=== PATIENT | male | born 1955 | race Caucasian/White ===

== ENCOUNTER 2019-09-06 10:00 | Outpatient (RCR) | payer OTHER, MEDICARE, SELFPAY ==
--- NOTE | 2019-06-19 11:32 | PCCPR ---
H/O gout and a flair up just prior to bypass surgery. To start a maintain dose of allopurinol
[2019-06-19 11:55] VITALS: BP 130/78; PULSE 66; RESP 12; O2SAT 100
[2019-06-19 12:18] VITALS: PULSE 66
== END 2019-09-11 15:55 | disposition home or self-care (01) ==
LOC: ANHCPREHAB 10:00
PROVIDERS: PCP Family Medicine
DX: Z95.1 Presence of aortocoronary bypass graft (principal)
CPT/HCPCS: 93798

== ENCOUNTER 2021-01-16 10:55 | Observation (INO) | payer OTHER, MEDICARE, SELFPAY ==
--- NOTE | ~2021-01-16 | CT_ITS ---
EXAMINATION: CT brain wo con DATE: 01/16/2021 13:39 INDICATION: Nausea and dizziness. TECHNIQUE: Computed tomography (CT) of the head was performed without intravenous contrast. Sagittal and coronal reconstructions were performed. Automated exposure control and iterative reconstruction t echnique were employed. The dose-length product was 605.33 mGy-cm. COMPARISON: None FINDINGS: No acute intracranial hemorrhage, acute infarction or abnormal extra axial fluid collection. There is mild scattered white matter hypoattenuation consistent with chronic small vessel ischemic disease. S ymmetric prominence of the sulci and ventricles consistent with mild age-appropriate diffuse cerebral volume loss. Ventricles are normal and symmetric. No mass/mass effect. Mild mucosal thickening in th e right maxillary and bilateral ethmoid sinuses. The orbits and mastoid air cells are normal. Intracr anial calcified cerebral atherosclerosis is noted. IMPRESSION: 1. No acute intracranial process. 2. Age-related changes including mild diffuse volume loss and mild scattered white matter hypoattenua tion consistent with chronic small vessel ischemic disease. Reviewed, dictated and finalized at location A. IMPRESSION: 1. No acute intracranial process. 2. Age-related changes including mild diffuse volume loss and mild scattered wh ite matter hypoattenuation consistent with chronic small vessel ischemic diseas e.
[2021-01-16 10:54] VITALS: BP 168/83; PULSE 58; RESP 18; TEMP 36.8; O2SAT 100
--- NOTE | 2021-01-16 11:03 | ECG_ITS ---
Measurements Intervals [place] Rate: 51 P: 2 MT: 131 QRS: 60 QRSD: 101 T: -70 QT: 455 QTc: 422 Interpretive Statements SINUS BRADYCARDIA MINIMAL Q WAVES- INFERIOR LEADS T WAVE ABNORMALITY IN LATERAL LEADS- CONSIDER ISCHEMIA ABNORMAL ECG Electronically Signed On 01-16-2021 11:35:10 CDT by Bart Dupont D.O.
[2021-01-16 11:36] LABS: Basophils Percent Auto 0.5 % (0.2-1.2); Eosinophils Percent Auto 0.6 % (0-4.4); Hematocrit 35.5 % (42.0-52.0); Hemoglobin 11.7 g/dL (14.0-18.0); Immature Granulocyte Absolute 0.03 K/mm3 (0.00-0.031); Immature Granulocyte Percent A 0.5 % (0-0.5); Lymphocytes Absolute Auto 0.67 K/mm3 (0.9-3.2); Lymphocytes Percent Auto 10.7 % (18.3-44.2); Mean Platelet Volume 10.7 fl (7.4-10.4); Monocytes Absolute Auto 0.4 K/mm3 (0.1-0.6); Monocytes Percent Auto 5.6 % (2.6-8.5); Neutrophils Absolute Auto 5.2 K/mm3 (1.3-6.7); Neutrophils Percent Auto 82.1 % (45.5-73.1); Platelet Count Result 134 k/mm3 (150-375); Red Cell Distribution Width 13.5 % (11.5-14.5); White Blood Count 6.3 K/mm3 (4.5-10.0)
[2021-01-16] MEDS: MECLIZINE HCL 25 MG TABLET PO ×2 (11:43→17:40)
[2021-01-16 11:45] LABS: Anion Gap 14 mmol/L (8-16); Blood Urea Nitrogen 5 mg/dL (9-20); Carbon Dioxide 26 mmol/L (22-30); Chloride 98 mmol/L (98-107); Estimated CRCL calculation 102 ml/min; Estimated Glomerular Filt Rate > 60; Glucose 125 mg/dL (65-110); Potassium 3.3 mmol/L (3.4-5.0); Sodium 138 mmol/L (137-145)
[2021-01-16] MEDS: POTASSIUM CHLORIDE 20 MEQ TABLET 40 MEQ PO (12:00)
[2021-01-16 12:01] LABS: Alanine Aminotransferase 36 U/L (4-50); Albumin Level 4.2 g/dL (3.5-5.1); Alkaline Phosphatase 100 U/L (38-126); Aspartate Amino Transferase 90 U/L (17-59); Bilirubin,Total 0.9 mg/dL (0.2-1.3)
--- NOTE | 2021-01-16 12:01 | ED.DIZZY ---
HPI - Dizziness General Chief Complaint: Dizziness Stated Complaint: dizziness Time Seen by Provider: 01/16/21 11:06 Source: patient Mode of arrival: ambulatory Limitations: no limitations History of Present Illness HPI Narrative: This is a 65 year old male with history of CAD s/p CABG, torsades who presents for evaluation of vertigo. He woke up yesterday morning with room spinning yesterday . He state he has has spinning with standing or walking. This episode lasted 15 minutes before it resolved. These symptoms were intermittent with standing and today he is having more frequent episodes. He has nausea and vomiting with his vertigo. He denies chest pain, sob, ear ache or tinnitis. He also denies focal weakness, numbness or tingling. He does admit to drinking beer daily. He is unsure of withdrawal symptoms. Related Data Home Medications Medication Instructions Recorded Confirmed atorvastatin 80 mg PO HS 06/19/19 01/16/21 folic acid 1 mg PO DAILY 06/19/19 01/16/21 lisinopril 20 mg PO DAILY 06/19/19 01/16/21 metoprolol succinate 50 mg PO DAILY 06/19/19 01/16/21 [id number] 1 tablet PO DAILY 06/19/19 01/16/21 [Theragran-M Premier 50 Plus] thiamine HCl (vitamin B1) 100 mg PO DAILY 06/19/19 01/16/21 omeprazole magnesium [Prilosec OTC] 20 mg PO DAILY 01/16/21 01/16/21 Allergies Allergy/AdvReac Type Severity Reaction Status Date / Time ampicillin Allergy Unknown Verified 01/16/21 16:19 Penicillins Allergy Unknown Verified 01/16/21 16:19 AMOXICILLIN TRIHYDRATE Allergy Unknown Uncoded 01/16/21 16:19 Review of Systems Review of Systems: All systems reviewed & are unremarkable except as noted in HPI and below Constitutional: Constitutional: Denies chills and Denies fever(s) Eyes: Eyes: Denies change in vision ENT: Denies dysphagia, Reports vertigo and Denies sore throat Cardiovascular: Cardiovascular: Denies chest pain Respiratory: Respiratory: Denies cough and Denies dyspnea Gastrointestinal: Gastrointestinal: Denies abdominal pain, Reports nausea and Denies vomiting Neurologic: Reports vertigo, Reports dizziness, Denies headache(s), Denies focal weakness and Denies numbness PMFSH Past Medical History Medical History (Updated 01/16/21 @ 19:12 by Randee Bazan MD) Alcohol abuse CAD (coronary artery disease) Torsades de pointes Surgical History Surgical History (Updated 01/16/21 @ 19:09 by Randee Bazan MD) Hx of CABG Family History Family History Other Depression Social History Social History (System 01/16/21 @ 16:19 by Guillermo Mercedes) Smoking status: Never smoker Alcohol intake: current Drinks per week: 14 Substance use: never Spiritual care concerns: No Exam Const: General: no acute distress, alert and ill appearing Orientation/consciousness: patient oriented x3 HENMT: Head: normocephalic and atraumatic Face and sinus: face symmetric Mouth: Yes Normal oral and palatal mucosa present, Yes lip normal, Yes oropharynx normal and Yes moist mucous membranes Eyes: Pupils: Equal, round and reactive pupils present EOM: EOMs intact bilaterally Resp: Effort & Inspection: normal respiratory effort and no retractions Auscultation: clear to auscultation bilaterally Cardio: Rate: bradycardic Rhythm: regular rhythm Heart sounds: Murmur heart sound present GI: GI Palp: Yes Soft to palpation, No Tenderness to palpation present (GI) and No Guarding due to palpation present (GI) Auscultation: normal bowel sounds Neuro: General: patient oriented x3, moves all extremities, no focal motor deficits and CN's II-XI intact bilaterally Cranial nerves: Yes facial symmetry and Yes Nystagmus present rotary Speech: normal speech Motor exam (neuro): 5/5 motor strength present throughout Sensory Exam: normal sensation Coordination: [id number]-[id number] test normal and [id number]-ul-[id number] test normal Course Ree
[2021-01-16] MEDS: CALCIUM GLUCONATE 1,000 MG/10 ML VIAL 1000 MG IV PUSH (12:52)
[2021-01-16] MEDS: SODIUM CHLORIDE 0.9% IV 500 ML 999 ML IV CONT (13:06)
[2021-01-16] MEDS: PROCHLORPERAZINE EDISYLATE 10 MG/2 ML VIAL IV PUSH (13:07)
[2021-01-16 13:09] LABS: Magnesium < 0.2 mg/dL (1.6-2.3)
[2021-01-16] MEDS: MAGNESIUM SULF 4 GM/WATER100ML 4 GM/100 ML BAG IVPB (13:42)
[2021-01-16] MEDS: THIAMINE HCL INJ 100 MG, FOLIC ACID INJ 1 MG, MULTIVITAMINS-12 INJ VIAL 1 5 ML, MULTIVI... IV CONT (15:21)
[2021-01-16 16:10] VITALS: BP 158/70; PULSE 74; RESP 18; TEMP 36.1; O2SAT 100; BMI 22.6
--- NOTE | 2021-01-16 16:18 | ADMGEN ---
This patient, Yeyo Vieira, was admitted to 2 Medical Room 242-. Patient/family oriented to hospital policies and general routines including ID bracelet, bed and alarms, visiting hours, pain management, procedures, bathroom and other care routines, personal items, smoking policy, room service/diet, and visiting hours. Information on how to activate the Rapid Response Team has been discussed. Patient/Family are encouraged to report perceived risks to care and to ask questions if they do not understand what they are told or what they should do.
[2021-01-16 19:19] LABS: Anion Gap 9 mmol/L (8-16); Blood Urea Nitrogen 4 mg/dL (9-20); Calcium 6.7 mg/dL (8.4-10.2); Carbon Dioxide 29 mmol/L (22-30); Chloride 97 mmol/L (98-107); Estimated CRCL calculation 101 ml/min; Estimated Glomerular Filt Rate > 60; Glucose 146 mg/dL (65-110); Magnesium 1.3 mg/dL (1.6-2.3); Sodium 135 mmol/L (137-145)
[2021-01-16 20:00] VITALS: PULSE 72
--- NOTE | 2021-01-16 20:36 | PM.IMHP ---
H&P: HPI History of Present Illness Date/Time: 01/16/21 20:36 Chief Complaint: VERTIGO Narrative: THIS IS A 65-YEAR-OLD MALE WITH PAST MEDICAL HISTORY SIGNIFICANT FOR CORONARY ARTERY DISEASE, CORONARY ARTERY BYPASS GRAFT X 5 VESSEL DISEASE, TORSADE THE POINTE, HYPO MAGNESEMIA. PATIENT PRESENTED TODAY AFTER HE WAS BROUGHT IN [facility] AFTER HE FELT VERY DIZZY HE STATES THAT HE HAS BEEN FEELING DIZZY FOR SEVERAL DAYS NOW MAINLY VERTIGO WITH ROOM SPINNING AROUND SENSATION THIS IS TRIGGERED BY SUDDEN CHANGE IN POSITION OF HIS HEAD. IN THE EMERGENCY ROOM PATIENT WAS FOUND TO HAVE A MAGNESIUM OF 0.2 WHICH HAS BEEN REPLACED WITH 4 G OF MAGNESIUM SULFATE. PATIENT DENIES ANY FEVERS RIGORS CHILLS COUGH SPUTUM PRODUCTION NAUSEA VOMITING DIARRHEA ABDOMINAL PAIN CHEST PAIN SHORTNESS OF BREATH CLAUDICATION SYNCOPE PND OR ORTHOPNEA. Review of Systems Review of Systems: VERTIGO Constitutional: Constitutional: Denies chills, Denies fatigue, Denies fever(s), Denies lethargy and Denies weakness Eyes: Eyes: Denies change in vision ENT: Reports system reviewed and no additional complaints, except as documented, Denies dysphagia, Denies nasal obstruction, Denies odynophagia and Denies disequilibrium Cardiovascular: Cardiovascular: Denies irregular heart rhythm, Denies lightheadedness, Denies radiating jaw, neck or arm pain, Denies palpitations, Denies dyspnea, Denies dyspnea on exertion and Denies orthopnea Respiratory: Respiratory: Denies cough Gastrointestinal: Gastrointestinal: Denies abdominal pain, Denies nausea and Denies vomiting Genitourinary: Genitourinary: Reports no additional male genitourinary complaints Musculoskeletal: Musculoskeletal: Reports no additional musculoskeletal complaints Integumentary/Breasts: Skin/Breast: Reports system reviewed and no additional complaints, except as docu Neurologic: Reports system reviewed and no additional complaints, except as documented, Reports vertigo, Denies focal weakness and Denies Sensory deficit (Neuro) Psychiatric: Psychiatric: Reports no additional psychiatric complaints Endocrine: Endocrine: Reports no additional endocrine complaints Hematologic/Lymphatic: Hematologic/Lymphatic: Reports no additional hematologic/lymphatic complaints Allergic/Immunologic: Allergic/Immunologic: Reports no additional allergic/immunologic complaints [facility] Past Medical History Medical History (Updated 01/16/21 @ 22:00 by Ronald Gabriel MD) Alcohol abuse CAD (coronary artery disease) Torsades de pointes Surgical History Surgical History (Updated 01/16/21 @ 19:09 by Randee Bazan MD) Hx of CABG Family History Family History Other Depression Social History Social History (System 01/16/21 @ 16:19 by Guillermo Mercedes) Smoking status: Never smoker Alcohol intake: current Drinks per week: 14 Substance use: never Spiritual care concerns: No Meds Home Medications and Allergies Home Medications Medication Instructions Recorded Confirmed Type atorvastatin 80 mg PO HS 06/19/19 01/16/21 History folic acid 1 mg PO DAILY 06/19/19 01/16/21 History lisinopril 20 mg PO DAILY 06/19/19 01/16/21 History metoprolol succinate 50 mg PO DAILY 06/19/19 01/16/21 History [id number] 1 tablet PO DAILY 06/19/19 01/16/21 History [Theragran-M Premier 50 Plus] thiamine HCl (vitamin B1) 100 mg PO DAILY 06/19/19 01/16/21 History omeprazole magnesium [Prilosec OTC] 20 mg PO DAILY 01/16/21 01/16/21 History Allergies Allergy/AdvReac Type Severity Reaction Status Date / Time ampicillin Allergy Unknown Verified 01/16/21 16:19 Penicillins Allergy Unknown Verified 01/16/21 16:19 AMOXICILLIN TRIHYDRATE Allergy Unknown Uncoded 01/16/21 16:19 Vital Signs Vital Signs - 24 hr 01/16/21 10:54 01/16/21 16:10 01/16/21 20:00 Temperature 98.2 F 97.0 F L Pulse Rate 58 L 74 72 Respiratory Rate 18 18 Blood Press
[2021-01-16 21:35] LABS: Glucose Point of Care 130 mg/dl (65-105)
[2021-01-16 21:38] VITALS: BP 138/62; PULSE 68; RESP 16; TEMP 36.2; O2SAT 99
[2021-01-16] MEDS: MAGNESIUM SULF 2 GM/WATER 50ML 2 GM/50 ML BAG IVPB (23:18)
[2021-01-16] MEDS: ATORVASTATIN 40 MG TABLET 80 MG PO (23:19)
[2021-01-17] VITALS (10 sets, daily range): BP systolic 136–143; BP diastolic 72–80; PULSE 67–102; RESP 16–18; TEMP 36.3–36.6; O2SAT 98–99
--- NOTE | 2021-01-17 08:58 | PM.IMPN ---
Progress Note: A&P Assessment and Plan (1) Vertigo: Code(s): R42 - Dizziness and giddiness Status: Acute Assessment and Plan: Suspect 2/2 positional vertigo Supportive care (2) Hypomagnesemia: Code(s): E83.42 - Hypomagnesemia Status: Acute Assessment and Plan: Will recheck Replace prn Daily supplement at d/c (3) CAD (coronary artery disease): Code(s): I25.10 - Atherosclerotic heart disease of [place] coronary artery without angina pectoris Status: Inactive Assessment and Plan: Stable Continue with home meds (4) Hypokalemia: Code(s): E87.6 - Hypokalemia Status: Acute Assessment and Plan: K+ 3.0 Will give 40 meq KCL Monitor (5) Alcohol abuse: Code(s): F10.10 - Alcohol abuse, uncomplicated Status: Inactive Assessment and Plan: Pt reported drinking 1-3 beers Daily Monitor CIWA if necessary (6) Torsades de pointes: Code(s): I47.2 - Ventricular tachycardia Status: Inactive Assessment and Plan: *Hx of hypomagnesemia and torsades WILL NEED MAGNESIUM SUPPLEMENT GOING HOME Subjective Date/time seen: 01/17/21 08:58 Review of Systems Review of Systems: All systems reviewed & are unremarkable except as noted in HPI and below Exam Const: General: no acute distress, alert and awake Orientation/consciousness: patient oriented x3 HENMT: Head: normocephalic and atraumatic Ears: hearing grossly normal bilaterally and external ears normal Face and sinus: face symmetric Mouth: Yes Normal oral and palatal mucosa present Eyes: Pupils: Equal, round and reactive pupils present EOM: EOMs intact bilaterally Neck: Neck: full ROM, trachea midline and no JVD Thyroid: thyroid normal Chest: Chest palpation & inspection: normal inspection of the chest Resp: Effort & Inspection: normal respiratory effort Auscultation: clear to auscultation bilaterally Cardio: Jugular venous distension: no JVD Rate: regular rate Rhythm: regular rhythm Heart sounds: S1 normal heart sound present and S2 normal heart sound present GI: Inspection: normal to inspection GI Palp: Yes Soft to palpation Percussion: Yes normal to percussion Auscultation: normal bowel sounds : General: Yes no CVA tenderness Back/Spine/Pelvis: Back: no CVA tenderness Skin: General skin exam: normal color Rashes: no rashes Neuro: General: patient oriented x3 and CN's II-XI intact bilaterally Cranial nerves: Yes Equal, round and reactive pupils present Speech: normal speech Psych: Appearance: grossly normal Affect: normal affect Judgement: Good judgement present (Psych) Objective Data Vital Signs Vital Signs: Vital Signs - 24 hr 01/16/21 10:54 01/16/21 16:10 01/16/21 20:00 Temperature 36.8 C 36.1 C L Pulse Rate 58 L 74 72 Respiratory Rate 18 18 Blood Pressure 168/83 H 158/70 H Pulse Oximetry 100 100 01/16/21 21:38 01/17/21 00:00 01/17/21 04:00 Temperature 36.2 C L Pulse Rate 68 68 77 Respiratory Rate 16 Blood Pressure 138/62 Pulse Oximetry 99 01/17/21 05:41 Temperature 36.3 C L Pulse Rate 67 Respiratory Rate 16 Blood Pressure 136/78 Pulse Oximetry 99 Intake/Output Intake/Output: Intake & Output 01/14/21 01/15/21 01/16/21 01/17/21 23:59 23:59 23:59 23:59 Intake Total 1130 1363.2 Balance 1130 1363.2 Meds/Results Medications: Active Medications Generic Name Dose Route Start Last Admin Trade Name Rachell PRN Reason Stop Dose Admin Atorvastatin Calcium 80 mg 01/17/21 09:00 Atorvastatin 40 Mg Tablet PO DAILY PETR Folic Acid 1 mg 01/17/21 09:00 Folic Acid 1 Mg Tablet PO DAILY PETR Acetaminophen 1,000 mg in 100 mls @ 400 mls/hr 01/16/21 14:50 Ofirmev 1,000 Mg Ivpb IVPB 01/17/21 14:51 Q6H PRN Mild Pain (1-3) or Fever Lisinopril 20 mg 01/17/21 09:00 Lisinopril 20 Mg Tablet PO DAILY PETR Magnesium Oxide 400 mg 01/17/21 09:00 Mag
[2021-01-17] MEDS: FOLIC ACID 1 MG TABLET PO (09:24)
[2021-01-17] MEDS: POTASSIUM CHLORIDE 20 MEQ TABLET.ER PO (09:24)
[2021-01-17] MEDS: lisinopriL 20 MG TABLET PO (09:24)
[2021-01-17] MEDS: POTASSIUM CHLORIDE 20 MEQ TABLET 40 MEQ PO (09:24)
[2021-01-17] MEDS: MAGNESIUM OXIDE 400 MG TABLET PO (09:24)
[2021-01-17] MEDS: MECLIZINE HCL 25 MG TABLET PO ×2 (09:25→16:33)
[2021-01-17] MEDS: METOPROLOL SUCCINATE EXT REL 50 MG TABCR PO (09:25)
[2021-01-17] MEDS: PANTOPRAZOLE 40 MG TABLET PO (09:26)
[2021-01-17] MEDS: THIAMINE HCL 100 MG TABLET PO (09:26)
[2021-01-17] MEDS: THERAPEUTIC MULTIVITAMINS/MINERALS TAB (*BKC) 1 TABLET PO (09:26)
[2021-01-17 09:36] LABS: Magnesium 1.7 mg/dL (1.6-2.3)
--- NOTE | 2021-01-17 10:31 | PC.NURSE ---
nurse called pharmacy for 0900 Atorvastatin 80 mg PO at 0830.
[2021-01-17] MEDS: ATORVASTATIN 40 MG TABLET 80 MG PO (11:13)
[2021-01-18] VITALS: PULSE 72
[2021-01-18 04:00] VITALS: PULSE 71
[2021-01-18 05:41] LABS: Anion Gap 4 mmol/L (8-16); Blood Urea Nitrogen 7 mg/dL (9-20); Calcium 7.1 mg/dL (8.4-10.2); Carbon Dioxide 30 mmol/L (22-30); Chloride 103 mmol/L (98-107); Estimated CRCL calculation 101 ml/min; Estimated Glomerular Filt Rate > 60; Glucose 94 mg/dL (65-110); Potassium 3.9 mmol/L (3.4-5.0); Sodium 137 mmol/L (137-145)
[2021-01-18 06:00] VITALS: BP 149/75; PULSE 76; RESP 18; TEMP 36.4; O2SAT 100
[2021-01-18 08:00] VITALS: PULSE 89
[2021-01-18] MEDS: CALCIUM CARBONATE (TUMS) 500 MG (200 MG ELEMENTAL) PO (08:37)
[2021-01-18 08:41] VITALS: PULSE 96
[2021-01-18] MEDS: ATORVASTATIN 40 MG TABLET 80 MG PO (08:41)
[2021-01-18] MEDS: POTASSIUM CHLORIDE 20 MEQ TABLET.ER PO (08:41)
[2021-01-18] MEDS: FOLIC ACID 1 MG TABLET PO (08:41)
[2021-01-18] MEDS: METOPROLOL SUCCINATE EXT REL 50 MG TABCR PO (08:41)
[2021-01-18] MEDS: MECLIZINE HCL 25 MG TABLET PO (08:41)
[2021-01-18] MEDS: lisinopriL 20 MG TABLET PO (08:41)
[2021-01-18] MEDS: PANTOPRAZOLE 40 MG TABLET PO (08:42)
[2021-01-18] MEDS: THIAMINE HCL 100 MG TABLET PO (08:42)
[2021-01-18] MEDS: THERAPEUTIC MULTIVITAMINS/MINERALS TAB (*BKC) 1 TABLET PO (08:42)
[2021-01-18] MEDS: MAGNESIUM OXIDE 400 MG TABLET PO (09:31)
--- NOTE | 2021-01-18 12:11 | PM.DS ---
DS: Admitting Diagnosis Admitting Diagnosis Vertigo DS: Discharge Diagnosis Discharge Diagnosis (1) Vertigo: Code(s): R42 - Dizziness and giddiness Status: Acute Assessment and Plan: Suspect 2/2 positional vertigo Supportive care (2) Hypomagnesemia: Code(s): E83.42 - Hypomagnesemia Status: Acute Assessment and Plan: Daily supplement at d/c (3) CAD (coronary artery disease): Code(s): I25.10 - Atherosclerotic heart disease of [place] coronary artery without angina pectoris Status: Inactive Assessment and Plan: Stable Continue with home meds (4) Hypokalemia: Code(s): E87.6 - Hypokalemia Status: Acute Assessment and Plan: Resolved K+ 3.0-->3.9 today S/p 40 meq KCL 01/17 D/c with supplement (5) Alcohol abuse: Code(s): F10.10 - Alcohol abuse, uncomplicated Status: Inactive Assessment and Plan: Pt reported drinking 1-3 beers daily (6) Torsades de pointes: Code(s): I47.2 - Ventricular tachycardia Status: Inactive Assessment and Plan: *Hx of hypomagnesemia and torsades WILL NEED MAGNESIUM SUPPLEMENT GOING HOME DS: Summary Hospital Course Hospital Course: 65 year old man with PMH significant for CAD, s/p CABG X5; Torsades, hypomagnesemia admitted after presenting to ED via EMS with dizziness for several days. He reported sensations with the room spinning around him triggered by sudden change in position. In the ED he was found with mg+ o 0.2 and treated with 4 gm of mg sulfate. He was also found with hypokalemia and hypocalcemia. He was treated with supplements and has clinically improved. He is stable for discharge and will be discharged home with electrolyte supplements. He has been advised to follow up with his PCP. He has also been advised to keep all scheduled appointments with specialist. Time Spent with Patient Time attestation: Total time spent providing and/or coordinating discharge services:55 Exam Const: General: no acute distress, alert and awake Orientation/consciousness: patient oriented x3 HENMT: Head: normocephalic and atraumatic Ears: hearing grossly normal bilaterally and external ears normal Face and sinus: face symmetric Mouth: Yes Normal oral and palatal mucosa present Eyes: Pupils: Equal, round and reactive pupils present EOM: EOMs intact bilaterally Neck: Neck: full ROM, trachea midline and no JVD Thyroid: thyroid normal Chest: Chest palpation & inspection: normal inspection of the chest Resp: Effort & Inspection: normal respiratory effort Auscultation: clear to auscultation bilaterally Cardio: Jugular venous distension: no JVD Rate: regular rate Rhythm: regular rhythm Heart sounds: S1 normal heart sound present and S2 normal heart sound present GI: Inspection: normal to inspection Auscultation: normal bowel sounds : General: Yes no CVA tenderness Back/Spine/Pelvis: Back: no CVA tenderness Skin: General skin exam: normal color Rashes: no rashes Neuro: General: patient oriented x3 and CN's II-XI intact bilaterally Cranial nerves: Yes Equal, round and reactive pupils present Speech: normal speech Psych: Appearance: grossly normal Affect: normal affect Judgement: Good judgement present (Psych) DS: Data Data Completed and Pending Labs on day of discharge: Labs from last 24 hours 01/18/21 04:23 Sodium 137 Potassium 3.9 Chloride 103 Carbon Dioxide 30 Anion Gap 4 L BUN 7 L Creatinine 0.60 L Estim Creat Clear Calc 101 Estimated GFR > 60 Glucose 94 Calcium 7.1 L Discharge Plan Discharge Attending physician on discharge: Ambrosio Godwin Discharging Clinician: Mago Lepe Patient Disposition: Home, Self-Care Activity: as tolerated Diet: heart healthy Patient Instructions: Antibiotic Form, Benign Paroxysmal Positional Vertigo (DC), Hypocalcemia (DC), Hypomagnesemia (DC) Stand Alone Forms: Gener
== END 2021-01-18 12:32 | disposition home or self-care (01) ==
LOC: ANHED 11:26 → ANH2MED 16:22
PROVIDERS: Nurse Practitioner Adult Health; Admitting Provider Internal Medicine; Emergency Provider General Practice; PCP Family Medicine; Visit Provider Internal Medicine Critical Care Medicine
DX: R42 Dizziness and giddiness (principal); E83.42 Hypomagnesemia; I25.10 Atherosclerotic heart disease of native coronary artery without angina pectoris; F10.10 Alcohol abuse, uncomplicated; I47.2 Ventricular tachycardia; Z95.1 Presence of aortocoronary bypass graft
CPT/HCPCS: 36415; 70450; 80048; 80076; 82948; 83735; 85025; 93005; 96361; 96365; 96366; 96367; 96375; 99285; A9270; G0378; J0610; J0780; J3411; J3475; J7030; J7040

== ENCOUNTER 2022-09-27 10:01 | Outpatient (CLI) | payer OTHER, MEDICARE, SELFPAY ==
--- NOTE | 2022-09-27 10:59 | ECG_ITS ---
Measurements Intervals [place] Rate: 61 P: 42 [place]: 137 QRS: 48 QRSD: 94 T: 25 QT: 480 QTc: 487 Interpretive Statements SINUS RHYTHM PROLONGED QT INTERVAL BORDERLINE ECG NO PREVIOUS ECG AVAILABLE FOR COMPARISON Electronically Signed On 09-27-2022 17:02:45 CDT by Axel Noble M.D.
[2022-09-27 11:21] LABS: Albumin Level 4.2 g/dL (3.5-5.1); Calcium 5.4 mg/dL (8.4-10.2)
[2022-09-27 11:30] LABS: Iron 54 ug/dL (49-181)
[2022-09-29 20:15] LABS: Ionized Calcium 3.4 mg/dL (4.7-5.5)
== END 2022-09-27 10:02 | disposition home or self-care (01) ==
PROVIDERS: Nurse Practitioner Adult Health; PCP Family Medicine; Visit Provider Family Medicine
DX: E83.51 Hypocalcemia (principal); D64.9 Anemia, unspecified
CPT/HCPCS: 36415; 82040; 82310; 82330; 82728; 83540; 93005

== ENCOUNTER 2022-09-27 11:53 | Observation (INO) | payer OTHER, MEDICARE, SELFPAY ==
[2022-09-27] VITALS (39 sets, daily range): BP systolic 165–190; BP diastolic 77–98; PULSE 60–88; RESP 14–26; TEMP 36.4; O2SAT 98–100; BMI 24.7
--- NOTE | ~2022-09-27 | XR_ITS ---
EXAMINATION: XR hand RT min 3V DATE: 09/27/2022 12:23 INDICATION: Right thumb pain and swelling. TECHNIQUE: 3 views of right hand were obtained. COMPARISON: Right wrist radiographs 05/17/2011 FINDINGS: Bone alignment is normal. No fracture. There is mild osteoarthritis of triscaphe joint and first carpometacarpal joint and some the interphalangeal joints. There is severe osteoarthritis of fi rst interphalangeal joint and second distal interphalangeal joint. There are erosions of neck of firs t proximal phalanx and second distal interphalangeal joint with soft tissue swelling. There are erosi ons of distal ulna. IMPRESSION: 1. Multifocal bone erosions associated with soft tissue swelling, likely gout. 2. Polyarticular osteoarthritis. Reviewed, dictated and finalized at location [facility].
[2022-09-27 12:49] LABS: Basophils Percent Auto 0.4 % (0.2-1.2); Eosinophils Percent Auto 0.3 % (0-4.4); Hematocrit 30.6 % (42.0-52.0); Hemoglobin 10.9 g/dL (14.0-18.0); Immature Granulocyte Absolute 0.05 K/mm3 (0.00-0.031); Immature Granulocyte Percent A 0.5 % (0-0.5); Lymphocytes Percent Auto 11.7 % (18.3-44.2); Mean Corpuscular HGB Conc 35.6 g/dl (32-36); Mean Corpuscular Hemoglobin 35.5 pg (26-34); Mean Corpuscular Volume 99.7 fl (80-100); Mean Platelet Volume 9.8 fl (7.4-10.4); Monocytes Absolute Auto 0.7 K/mm3 (0.1-0.6); Monocytes Percent Auto 7.4 % (2.6-8.5); Neutrophils Absolute Auto 7.5 K/mm3 (1.3-6.7); Neutrophils Percent Auto 79.7 % (45.5-73.1); Platelet Count Result 241 k/mm3 (150-375); Red Blood Count 3.07 M/mm3 (4.6-6.20); Red Cell Distribution Width 16.3 % (11.5-14.5); White Blood Count 9.4 K/mm3 (4.5-10.0)
[2022-09-27 13:17] LABS: Alanine Aminotransferase 22 U/L (6-50); Albumin Level 4.1 g/dL (3.5-5.1); Alkaline Phosphatase 83 U/L (38-126); Anion Gap 6 mmol/L (8-16); Aspartate Amino Transferase 39 U/L (17-59); Bilirubin,Total 0.7 mg/dL (0.2-1.3); Blood Urea Nitrogen 7 mg/dL (9-20); Calcium 5.3 mg/dL (8.4-10.2); Carbon Dioxide 36 mmol/L (22-30); Chloride 99 mmol/L (98-107); Estimated CRCL calculation 84 ml/min; Estimated Glomerular Filt Rate > 60; Glucose 93 mg/dL (65-110); Magnesium 0.4 mg/dL (1.6-2.3); Phosphorus 3.6 mg/dL (2.5-4.5); Potassium 2.8 mmol/L (3.4-5.0); Sodium 141 mmol/L (137-145)
--- NOTE | 2022-09-27 13:23 | ECG_ITS ---
Measurements Intervals [place] Rate: 82 P: 45 [place]: 120 QRS: 55 QRSD: 89 T: 22 QT: 419 QTc: 490 Interpretive Statements SINUS RHYTHM NONSPECIFIC ST ABNORMALITY BORDERLINE ECG COMPARED TO ECG 09/27/2022 11:24:51 ST (T WAVE) DEVIATION NOW PRESENT PROLONGED QT INTERVAL NO LONGER PRESENT Electronically Signed On 09-27-2022 17:05:53 CDT by Axel Noble M.D.
--- NOTE | 2022-09-27 13:41 | ED.GENADULT ---
HPI - General Adult General Chief complaint: Recheck/Abnormal Lab/Rx Stated complaint: Low Calcium Time Seen by Provider: 09/27/22 13:29 Source: RN notes reviewed History of Present Illness HPI narrative: Patient presents emergency department from home for abnormal calcium level. Patient states he is going to see his PCP Dr. Dempsey this morning was having routine blood work prior to that states that routine blood work that showed a low calcium level and he was sent to the emergency department for IV calcium and further evaluation. Patient states b is only complaint is that he has had swelling of his right thumb states he has a history of gout and has been worsening over the past 2 weeks states that he has had no fevers or chills he denies any chest pain or shortness of breath abdominal pain nausea or vomiting. Patient states he does have a history of EtOH use approximately 3 beers a day patient states he has had no trauma or injury to the right hand he is able to move it but is painful in the right thumb Related Data Home Medications Medication Instructions Recorded Confirmed atorvastatin 80 mg tablet 80 mg PO HS 06/19/19 01/16/21 folic acid 1 mg tablet 1 mg PO DAILY 06/19/19 01/16/21 lisinopril 10 mg tablet 20 mg PO DAILY 06/19/19 01/16/21 metoprolol succinate 50 mg 50 mg PO DAILY 06/19/19 01/16/21 tablet,extended release 24 hr zqkuoczy-toq-xikuz acid 400 1 tablet PO DAILY 06/19/19 01/16/21 mcg-coQ10 250 mcg-lycop 375 mcg-lut tablet (Theragran-M Premier 50 Plus) thiamine HCl (vitamin B1) 100 mg 100 mg PO DAILY 06/19/19 01/16/21 tablet omeprazole magnesium 20 mg 20 mg PO DAILY 01/16/21 01/16/21 tablet,delayed release (Prilosec OTC) Allergies Allergy/AdvReac Type Severity Reaction Status Date / Time ampicillin Allergy Unknown Rash Verified 09/27/22 12:01 Penicillins Allergy Unknown Rash Verified 09/27/22 12:01 AMOXICILLIN TRIHYDRATE Allergy Unknown Rash Uncoded 09/27/22 12:01 Review of Systems Review of Systems: Gen.: Denies fevers or chills Eyes: Denies eye pain or visual change ENT: Denies congestion Respiratory: Denies shortness of breath or cough CV: Denies chest pain or palpitations GI: Denies abdominal pain nausea, emesis Musculoskeletal: See HPI Neuro: Denies numbness, tingling, weakness or focal weakness Skin: Denies rash Except as documented, all other systems reviewed and negative [facility] Past Medical History Medical History (Updated 09/27/22 @ 17:22 by Dejuan Leary DO) Alcohol abuse CAD (coronary artery disease) Hyperlipidemia Hypertension Torsades de pointes Surgical History Surgical History (Updated 09/27/22 @ 14:46 by Mildred Ware NP) Hx of CABG 5 vessel Family History Family History (Updated 09/27/22 @ 14:48 by Mildred Ware NP) Father Hyperlipidemia Other Depression Social History Social History (Updated 09/27/22 @ 14:51 by Mildred Ware NP) Social History: lives with . 1 child . 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 CARDIOVASCULAR: Regular rate and rhythm without murmurs rubs or gallops. ABDOMINAL: Soft, nontender, nondistended, no rebound or guarding MUSCULOSKELETAl: Moves all extremities. No clubbing, cyanosis or edema. NEURO: Awake and alert. Following commands, speech normal, no focal deficits the right hand has swelling around the IP joint as well as the MCP joint, he has full flexion extension but pain with full flexion at the IP joint there is gouty tophi present as well as gouty tophi over the base of the second MCP joint. Radial pulses 2+ neurovas
[2022-09-27] MEDS: CALCIUM GLUCONATE 1,000 MG/10 ML VIAL 1000 MG IV PUSH (13:59)
[2022-09-27 14:12] LABS: Ethanol < 10 mg/dL (<10)
[2022-09-27] MEDS: MAGNESIUM SULFATE 3GM/D5W100ML 3 GM/100 ML BAG IVPB (14:14)
[2022-09-27] MEDS: POTASSIUM CHLORIDE INJ 40 MEQ in SODIUM CHLORIDE 0.9% IV 500 ML 130 MEQ IVPB ×2 (14:15→21:04)
[2022-09-27] MEDS: POTASSIUM CHLORIDE 20 MEQ TABLET PO (14:16)
--- NOTE | 2022-09-27 14:44 | PM.IMHP ---
H&P: HPI History of Present Illness Date/Time: 09/27/22 14:44 Chief Complaint: Right thumb gout Narrative: This is a 67-year-old male patient who has a history of gout to his right thumb. The patient stated that he has been taking colchicine for his gout and has had diarrhea. The patient stated that he went to his primary care doctor this morning to have routine blood work and it was read as low calcium. The patient was sent to the emergency room for IV calcium in further evaluation. The patient stated that his gout is getting worse over the last 2 weeks. He has been cutting his beers back to 2 beers a day and trying to cut out his red meat. His H&H is found to be 10.9 and 30.6. Neutrophil percentage is 79.7. Potassium was found to be 2.8 and is now 2.9. His calcium was 5.3 now 5.6. Magnesium was 0.4 now 1.2. The patient was given calcium gluconate, IV potassium, oral potassium, magnesium, and thiamin. The patient is being admitted to observation status on the date of service of 09/27/2022. Review of Systems Review of Systems: All systems reviewed & are unremarkable except as noted in HPI and below Constitutional: Constitutional: Reports as per HPI and Reports no additional constitutional complaints Eyes: Eyes: Reports as per HPI and Reports no additional eye complaints ENT: Reports system reviewed and no additional complaints, except as documented and Reports Normal hearing present Cardiovascular: Cardiovascular: Reports no additional cardiovascular complaints Respiratory: Respiratory: Reports no additional respiratory complaints and Reports no additional respiratory complaints Gastrointestinal: Gastrointestinal: Reports as per HPI and Reports no additional gastrointestinal complaints Musculoskeletal: Musculoskeletal: Reports no additional musculoskeletal complaints Integumentary/Breasts: Skin/Breast: Reports system reviewed and no additional complaints, except as docu and Reports as per HPI Neurologic: Reports system reviewed and no additional complaints, except as documented, Reports as per HPI and Reports Normal hearing present Psychiatric: Psychiatric: Reports no additional psychiatric complaints and Reports as per HPI Endocrine: Endocrine: Reports no additional endocrine complaints Hematologic/Lymphatic: Hematologic/Lymphatic: Reports no additional hematologic/lymphatic complaints Allergic/Immunologic: Allergic/Immunologic: Reports no additional allergic/immunologic complaints [facility] Past Medical History Medical History (Updated 09/27/22 @ 18:35 by Mildred Ware NP) Alcohol abuse CAD (coronary artery disease) Gout Hyperlipidemia Hypertension Torsades de pointes Surgical History Surgical History Hx of CABG 5 vessel Family History Family History Father Hyperlipidemia Other Depression Social History Social History (Updated 09/27/22 @ 18:21 by Mildred Ware NP) Social History: He lives with his . He has 1 child . 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 He drinks 2-3 beers a day. Code status full code Smoking status: Never smoker Alcohol intake: current Drinks per week: 14 Substance use: never Spiritual care concerns: No Meds Home Medications and Allergies Home Medications Medication Instructions Recorded Confirmed Type atorvastatin 80 mg tablet 80 mg PO HS 06/19/19 01/16/21 History folic acid 1 mg tablet 1 mg PO DAILY 06/19/19 01/16/21 History lisinopril 10 mg tablet 20 mg PO DAILY 06/19/19 01/16/21 History metoprolol succinate 50 mg 50 mg PO DAILY 06/19/19 01/16/21 History tablet,extended release 24 hr muxnsuzn-mwt-cavdk acid 400 1 tablet PO DAILY 06/19/19 01/16/21 History mcg-coQ10 250 mcg-lycop 375 mcg-lut tablet (Theragran-M Premier 50 Plus) thiamine HCl (vitamin B1) 100 mg 100 mg PO DAILY 06/19/19 01/16/21 Histo
[2022-09-27] MEDS: THIAMINE HCL 200 MG/2 ML VIAL 100 MG IV PUSH (16:12)
[2022-09-27 16:41] LABS: Alanine Aminotransferase 21 U/L (6-50); Albumin Level 3.9 g/dL (3.5-5.1); Alkaline Phosphatase 82 U/L (38-126); Anion Gap 8 mmol/L (8-16); Aspartate Amino Transferase 40 U/L (17-59); Bilirubin,Total 1.2 mg/dL (0.2-1.3); Blood Urea Nitrogen 7 mg/dL (9-20); Calcium 5.6 mg/dL (8.4-10.2); Carbon Dioxide 33 mmol/L (22-30); Chloride 99 mmol/L (98-107); Estimated CRCL calculation 97 ml/min; Estimated Glomerular Filt Rate > 60; Glucose 89 mg/dL (65-110); Magnesium 1.2 mg/dL (1.6-2.3); Potassium 2.9 mmol/L (3.4-5.0); Sodium 140 mmol/L (137-145)
[2022-09-27] MEDS: CALCIUM GLUC 1,000 MG/NS 50 ML 1,000 MG/50 ML BAG 100 MG IVPB (20:24)
[2022-09-27] MEDS: POTASSIUM CHLORIDE 20 MEQ PACKET (FOR LIQUID) 40 MEQ PO (20:31)
--- NOTE | 2022-09-27 20:57 | ADMGEN ---
This patient, Yeyo Vieira, was admitted to IMU Room 213-01 at 2030 on 09/27/2022 . Patient/family oriented to hospital policies and general routines including ID bracelet, bed and alarms, visiting hours, pain management, procedures, bathroom and other care routines, personal items, smoking policy, room service/diet, and visiting hours. Information on how to activate the Rapid Response Team has been discussed. Patient/Family are encouraged to report perceived risks to care and to ask questions if they do not understand what they are told or what they should do.
[2022-09-27] MEDS: MAGNESIUM SULF 2 GM/WATER 50ML 2 GM/50 ML BAG IVPB (21:04)
[2022-09-28] VITALS (12 sets, daily range): BP systolic 150–171; BP diastolic 73–96; PULSE 65–107; RESP 18–20; TEMP 36.1–36.6; O2SAT 97–100
[2022-09-28 00:27] LABS: Glucose Point of Care 86 mg/dl (65-105)
[2022-09-28 02:11] LABS: Basophils Percent Auto 0.7 % (0.2-1.2); Eosinophils Absolute Auto 0.1 K/mm3 (0-0.3); Eosinophils Percent Auto 1.1 % (0-4.4); Hematocrit 31.3 % (42.0-52.0); Hemoglobin 10.3 g/dL (14.0-18.0); Immature Granulocyte Absolute 0.02 K/mm3 (0.00-0.031); Immature Granulocyte Percent A 0.4 % (0-0.5); Lymphocytes Absolute Auto 0.85 K/mm3 (0.9-3.2); Lymphocytes Percent Auto 15.1 % (18.3-44.2); Mean Corpuscular HGB Conc 32.9 g/dl (32-36); Mean Corpuscular Hemoglobin 30.3 pg (26-34); Mean Corpuscular Volume 92.1 fl (80-100); Mean Platelet Volume 9.7 fl (7.4-10.4); Monocytes Absolute Auto 0.4 K/mm3 (0.1-0.6); Monocytes Percent Auto 6.2 % (2.6-8.5); Neutrophils Absolute Auto 4.3 K/mm3 (1.3-6.7); Neutrophils Percent Auto 76.5 % (45.5-73.1); Platelet Count Result 229 k/mm3 (150-375); Red Cell Distribution Width 13.3 % (11.5-14.5); White Blood Count 5.6 K/mm3 (4.5-10.0)
[2022-09-28 02:22] LABS: Alanine Aminotransferase 20 U/L (6-50); Albumin Level 3.8 g/dL (3.5-5.1); Alkaline Phosphatase 89 U/L (38-126); Anion Gap 6 mmol/L (8-16); Aspartate Amino Transferase 38 U/L (17-59); Bilirubin,Total 0.8 mg/dL (0.2-1.3); Blood Urea Nitrogen 7 mg/dL (9-20); Calcium 5.8 mg/dL (8.4-10.2); Carbon Dioxide 30 mmol/L (22-30); Chloride 101 mmol/L (98-107); Estimated CRCL calculation 97 ml/min; Estimated Glomerular Filt Rate > 60; Glucose 96 mg/dL (65-110); Magnesium 1.6 mg/dL (1.6-2.3); Sodium 137 mmol/L (137-145)
[2022-09-28 02:23] LABS: Anion Gap 1 mmol/L (8-16); Blood Urea Nitrogen 7 mg/dL (9-20); Calcium 5.8 mg/dL (8.4-10.2); Carbon Dioxide 33 mmol/L (22-30); Chloride 100 mmol/L (98-107); Estimated CRCL calculation 97 ml/min; Estimated Glomerular Filt Rate > 60; Glucose 96 mg/dL (65-110); Potassium 4.1 mmol/L (3.4-5.0); Sodium 134 mmol/L (137-145); Uric Acid 4.1 mg/dL (3.5-8.5)
[2022-09-28 06:32] LABS: Glucose Point of Care 104 mg/dl (65-105)
[2022-09-28] MEDS: predniSONE 20 MG TABLET 40 MG PO (09:18)
[2022-09-28] MEDS: lisinopriL 10 MG TABLET 30 MG PO (09:20)
[2022-09-28] MEDS: FOLIC ACID 1 MG TABLET PO (09:20)
[2022-09-28] MEDS: EZETIMIBE 10 MG TABLET PO (09:20)
[2022-09-28] MEDS: METOPROLOL SUCCINATE EXT REL 100 MG TABCR PO (09:21)
[2022-09-28] MEDS: ATORVASTATIN 40 MG TABLET 80 MG PO (09:21)
[2022-09-28] MEDS: PANTOPRAZOLE 40 MG TABLET PO (09:21)
[2022-09-28] MEDS: THERAPEUTIC MULTIVITAMINS/MINERALS TAB (*BKC) 1 TABLET PO (09:21)
[2022-09-28] MEDS: THIAMINE HCL 200 MG/2 ML VIAL 100 MG IV PUSH (09:22)
[2022-09-28] MEDS: CALCIUM/VITAMIN D 250 MG TABLET 1 TABLET PO (09:33)
[2022-09-28 11:34] LABS: Glucose Point of Care 172 mg/dl (65-105)
--- NOTE | 2022-09-28 11:52 | PM.DS ---
DS: Admitting Diagnosis Discharge Date September 28, 2022 Admitting Diagnosis Gout, electrolyte abnormalities DS: Discharge Diagnosis Discharge Diagnosis (1) Hypomagnesemia: Code(s): E83.42 - Hypomagnesemia Status: Acute Assessment and Plan: His magnesium has been replaced. Patient's magnesium remains low at 1.2. I will give him some more magnesium and recheck him in a couple hours. The patient stated that he has been using colchicine which is been giving him diarrhea. Diarrhea may have caused his magnesium to go low. The patient stated that he has been using colchicine for several days and it has been causing him diarrhea. (2) Hypokalemia: Code(s): E87.6 - Hypokalemia Status: Acute Assessment and Plan: His potassium was replaced in the emergency room and remains low. I replaced again this evening and recheck his potassium this evening. Recheck magnesium and potassium in the a.m.. The patient had diarrhea over several days after using colchicine. (3) Alcohol abuse: Code(s): F10.10 - Alcohol abuse, uncomplicated Status: Acute Assessment and Plan: CIWA protocol/alcohol withdrawal protocol (4) Hypocalcemia: Code(s): E83.51 - Hypocalcemia Status: Acute Assessment and Plan: Recheck calcium tonight. Calcium has been replaced x2. (5) Hyperlipidemia: Code(s): E78.5 - Hyperlipidemia, unspecified Status: Acute Assessment and Plan: Continue with home medication of atorvastatin (6) Hypertension: Code(s): I10 - Essential (primary) hypertension Status: Acute Assessment and Plan: P.r.n. hydralazine and resume lisinopril Resume metoprolol (7) Gout: Code(s): M10.9 - Gout, unspecified Status: Acute Assessment and Plan: The patient has gouty arthritis to the right thumb. Patient is concerned about using steroids is he has trace edema to his lower extremity. He is concerned that he may routine even more fluid with the steroids. I consulted ortho for the possibility of aspiration of joint and or injection of steroids into right thumb if the patient cannot tolerate oral steroids. DS: Summary Hospital Course Hospital Course: Patient is 59-year-old gentleman came in electrolyte abnormalities. These have been corrected. Potassium magnesium are normal and he can be discharged on oral calcium replacement. Patient is adamant wants to really leave the hospital. Did discuss with him that we do need Orthopedics see him prior to discharge and he is agreeable to. We will also need to follow-up his primary care physician he agreed to do that soon after discharge as he is adamant and wants to leave. To note patient was previously having some loose stool secondary to some his gout medications. His gout medicine can be stopped on discharge. Time Spent with Patient Time attestation: Total time spent providing and/or coordinating discharge services: Exam Const: General: cooperative, healthy appearing, comfortable, no acute distress, well developed, awake, Physically active, average body habitus and well nourished Nutritional Appearance: average body habitus and well nourished Orientation/consciousness: oriented to person, oriented to place, oriented to time and patient oriented x3 Limitations: no limitations HENMT: Head: normal to inspection, No palpable skull fracture present, normocephalic, atraumatic and abrasion Ears: hearing grossly normal bilaterally and external ears normal Face/Nose/Sinus: Normal external nose present and Normal nares present Eyes: General: appearance normal, both eyes and all related structures Alignment and Position: alignment normal Periorbital: periorbital findings normal Eyelids: eyelids normal Sclera: sclerae normal Pupils: Equal, round and reactive pupils present EOM: EOMs intact bilaterally Neck: Neck: normal visual inspection, full ROM, no lymphadenopathy, trachea midline and supple
--- NOTE | 2022-09-28 13:02 | PM.CNOR ---
Assessment and Plan Assessment and plan (1) Gouty tophus of digit: Code(s): M1A.9XX1 - Chronic gout, unspecified, with tophus (tophi) <Giuliana ZoraidaSHANICE Dodge - Last Filed: 09/28/22 13:23> Status: Acute <SHANICE Ruiz - Last Filed: 09/28/22 13:23> Assessment and Plan: History, exam and radiographs reviewed with the patient. Radiographs of the right hand reveal severe osteoarthritis of first interphalangeal joint and second distal interphalangeal joint. There are erosions of neck of first proximal phalanx and second distal interphalangeal joint with soft tissue swelling, consistent with gout. Uric acid 4.1. Patient does not take daily medication for gout and refuses to do so due to history of complications with Allopurinol. Condition, nature, etiology and course of natural history discussed. Conservative and operative treatment options reviewed as well as the risks and benefits of both. Patient would like to discuss surgical options and would benefit from follow up with a hand surgeon as an outpatient. We will facilitate the referral. Patient aware. Thank you for allowing us to assist in the care of this patient. Okay to discharge from an orthopedic standpoint when medically cleared. Follow up as an outpatient. <SHANICE Ruiz - Last Filed: 09/28/22 13:23> History, exam and radiographs reviewed with the patient. Radiographs of the right hand reveal severe osteoarthritis of first interphalangeal joint and second distal interphalangeal joint. There are erosions of neck of first proximal phalanx and second distal interphalangeal joint with soft tissue swelling, consistent with gout. Uric acid 4.1. Patient does not take daily medication for gout and refuses to do so due to history of complications with Allopurinol. Condition, nature, etiology and course of natural history discussed. Conservative and operative treatment options reviewed as well as the risks and benefits of both. Patient would like to discuss surgical options and would benefit from follow up with a hand surgeon as an outpatient. We will facilitate the referral. Patient aware. Thank you for allowing us to assist in the care of this patient. Okay to discharge from an orthopedic standpoint when medically cleared. Follow up as an outpatient with hand specialist. <Leo Melchor MD - Last Filed: 09/28/22 14:12> (2) Gout: Code(s): M10.9 - Gout, unspecified <SHANICE Ruiz - Last Filed: 09/28/22 13:23> Status: Acute <SHANICE Ruiz - Last Filed: 09/28/22 13:23> Assessment and Plan: Patient seen and examined. Agree with orthopedic consultation. Gouty flare up of right thumb. Patient is not really on any maintenance or preventative medication. He is going to check with his primary care physician about treatment for his gout. At this time is pain is improved and I would not recommend any attempt at aspiration at this time. If he would like to consider surgical treatment we have recommended he be seen with a hand specialist. <Leo Melchor MD - Last Filed: 09/28/22 14:12> History of Present Illness HPI Consult date: 09/28/22 <SHANICE Ruiz - Last Filed: 09/28/22 13:23> 09/28/22 <Leo Melchor MD - Last Filed: 09/28/22 14:12> Consult reason: other <SHANICE Ruiz - Last Filed: 09/28/22 13:23> Chief complaint: Hypocalcemia,Hypomagnesia,Hypokalemia,Gout <SHANICE Ruiz - Last Filed: 09/28/22 13:23> Narrative: 67 year old male with a history of right thumb pain which is chronic but has worsened over the last two weeks. Patient was admitted to [facility] for dehydration and electrolyte abnormalities after taking colchicine for what he felt was a gouty flare and developing diarrhea. He has a 30+ year history of gout which affects his bilateral hands. Patient does not take a daily gout medication because he has trialed it in the past and felt he had complications. Radiographs o
[2022-10-01 19:29] LABS: Ionized Calcium 3.7 mg/dL (4.7-5.5)
== END 2022-09-28 14:53 | disposition home or self-care (01) ==
LOC: ANHED 17:22 → ANHIMU 09-28 11:52
PROVIDERS: Nurse Practitioner; Physician Assistant; Admitting Provider Family Medicine; Emergency Provider Emergency Medicine; PCP Family Medicine; Visit Provider Chiropractor
DX: E83.42 Hypomagnesemia (principal); E87.6 Hypokalemia; F10.10 Alcohol abuse, uncomplicated; Y90.0 Blood alcohol level of less than 20 mg/100 ml; E83.51 Hypocalcemia; E78.5 Hyperlipidemia, unspecified; I10 Essential (primary) hypertension; M10.9 Gout, unspecified; I25.10 Atherosclerotic heart disease of native coronary artery without angina pectoris; Z95.5 Presence of coronary angioplasty implant and graft; I47.21 Torsades de pointes; M15.9 Polyosteoarthritis, unspecified; R94.31 Abnormal electrocardiogram [ECG] [EKG]; D64.9 Anemia, unspecified; Z79.899 Other long term (current) drug therapy; Z83.438 Family history of other disorder of lipoprotein metabolism and other lipidemia
CPT/HCPCS: 36415; 73130; 80048; 80053; 80307; 82330; 82948; 83735; 84100; 84550; 85025; 93005; 96365; 96366; 96367; 96368; 96375; 96376; 99285; A9270; G0378; J0612; J3411; J3475; J3480; J7040; J7512

== ENCOUNTER 2022-12-04 15:07 | Inpatient (IN) | payer OTHER, MEDICARE, SELFPAY ==
[2022-12-04] VITALS (32 sets, daily range): BP systolic 123–173; BP diastolic 63–108; PULSE 70–103; RESP 15–26; TEMP 36.5–36.8; O2SAT 90–98; BMI 23.3
--- NOTE | ~2022-12-04 | US_ITS ---
EXAMINATION: US carotid duplex BI DATE: 12/05/2022 11:22 INDICATION: Unresponsive episode TECHNIQUE: Grayscale, color Doppler, and pulsed Doppler images of the cervical carotid arteries were obtained. The degree of vessel stenosis is placed in one of the following categories: normal, <50%, 5 0-69%, >=70% but less than near-occlusion, near-occlusion, or total occlusion. Note that percent sten osis relative to normal distal artery lumen diameter is indirectly measured from velocity measurement s as described by Troy, et al. Radiology 2003; 229:340-346. COMPARISON: None. FINDINGS: RIGHT: The right common carotid artery (CCA) peak systolic velocity (PSV) is 106.2 cm/s. The right internal carotid artery (ICA) PSV is 58.8 cm/s. The right ICA end-diastolic velocity (EDV) is 10.3 cm/s. The r ight ICA/CCA PSV ratio is 0.6. Grayscale and color Doppler images yield an estimate of less than 50% diameter reduction from plaque in the ICA. The external carotid artery (ECA) PSV is 59.9 cm/s. There is antegrade flow in the right vertebral artery. LEFT: The left CCA PSV is 95.3 cm/s. The left ICA PSV is 63.3 cm/s. The left ICA EDV is 9.2 cm/s. The left ICA/CCA PSV ratio is 0.7. Grayscale and color Doppler images yield an estimate of less than 50% diame ter reduction from plaque in the ICA. The ECA PSV is 59.9 cm/s. There is antegrade flow in the left v ertebral artery. IMPRESSION: 1. Less than 50% stenosis in the right internal carotid artery. 2. Less than 50% stenosis in the left internal carotid artery. Reviewed, dictated and finalized at Location [facility]. Reviewed, dictated and finalized at location A.
--- NOTE | ~2022-12-04 | US_ITS ---
US venous doppler [facility] DATE: 12/05/2022 11:21 INDICATION: Edema of the lower extremity. History of deep venous thrombosis. TECHNIQUE: Real-time and color flow imaging and Doppler analysis of the veins of the lower extremitie s COMPARISON: 04/08/2017 venous duplex examination of the right lower extremity FINDINGS: The greater saphenous veins are patent. There is spontaneous and phasic flow and normal aug mentation, color flow signal and compression of the deep veins of both lower extremities with the exc eption of incomplete compression the left popliteal vein. IMPRESSION: Incomplete compression of left popliteal vein suggesting partial deep venous thrombosis Reviewed, dictated and finalized at [facility]. Reviewed, dictated and finalized at location A. IMPRESSION: Incomplete compression of left popliteal vein suggesting partial de ep venous thrombosis
--- NOTE | ~2022-12-04 | CT_ITS ---
EXAMINATION: CT brain wo con DATE: 12/04/2022 16:19 INDICATION: Seizures TECHNIQUE: Computed tomography (CT) of the head was performed without intravenous contrast. The dose- length product was 681.00 mGy-cm. Automated exposure control and iterative reconstruction technique w ere employed. COMPARISON: CT dated 01/16/2021 FINDINGS: No acute intracranial hemorrhage, infarction, mass or mass effect. No ventriculomegaly or m idline shift. Basilar cisterns are patent. There is intracranial atherosclerosis. There are scattered mild periventricular and subcortical white matter changes, most likely related to small vessel ische simran disease (microangiopathy). There is mucosal thickening of the maxillary and ethmoid sinuses. Mast oids are pneumatized. No depressed skull fractures. No depressed skull fractures. IMPRESSION: 1. No acute intracranial abnormality. 2: Moderate sinus disease. 3: Chronic age-related findings Reviewed, dictated and finalized at location A.
--- NOTE | ~2022-12-04 | MR_ITS ---
EXAMINATION: MR brain/brain stem wo con DATE: 12/06/2022 15:40 INDICATION: New onset seizure TECHNIQUE: Magnetic resonance imaging (MRI) of the brain and brainstem was performed without intraven ous contrast. Sequences included sagittal and axial T1-weighted SE, axial diffusion-weighted FS SE, a xial T2*-weighted GRE, axial 3D SWAN, axial T2-weighted FLAIR, and axial T2-weighted FSE. Apparent di ffusion coefficient (ADC) maps were created. COMPARISON: None. FINDINGS: There are no areas of restricted diffusion to suggest acute infarction. No intracranial hemorrhage or abnormal intracranial mass lesion. There are scattered areas of nonspecific increased T2-weighted si gnal intensity in the cerebral white matter, predominantly involving the deep and periventricular whi te matter which is within normal limits for age. There are no intraparenchymal signal abnormalities s een on the other pulse sequences. There is mild scattered white matter hypoattenuation consistent wit h chronic small vessel ischemic disease. The ventricles are symmetric and normal in size. There are no abnormal extra-axial fluid collections. Flow voids are seen in the cerebral arteries on the T2-chetan ghted sequences consistent with their expected patency. Moderate mucosal thickening the bilateral eth moid and maxillary sinuses. Visualized orbits and soft tissues are unremarkable. IMPRESSION: 1. No acute intracranial process. 2. Nonspecific scattered foci of white matter T2 hyperintensity which is within normal limits for age and likely sequela of chronic small vessel ischemic disease. 3. Sinus disease. Reviewed, dictated and finalized at location A. IMPRESSION: 1. No acute intracranial process. 2. Nonspecific scattered foci of white matter T2 hyperintensity which is within normal limits for age and likely sequela of chronic small vessel ischemic dise ase. 3. Sinus disease.
--- NOTE | ~2022-12-04 | XR_ITS ---
XR chest 1V portable 12/06/2022 13:49 Indication: Previous bypass surgery. Procedure: AP portable chest Comparison: No prior studies for comparison. Findings: Status post median sternotomy for CABG. Heart size normal. Mild interstitial edema. No pleu ral effusion or pneumothorax. No acute osseous abnormality. Impression: 1: Mild interstitial edema. Reviewed, dictated and finalized at location [] Impression: 1: Mild interstitial edema.
--- NOTE | 2022-12-04 15:13 | ECG_ITS ---
Measurements Intervals [place] Rate: 97 P: 31 NM: 141 QRS: 62 QRSD: 110 T: -14 QT: 380 QTc: 484 Interpretive Statements SINUS RHYTHM POSSIBLE LEFT ATRIAL ENLARGEMENT [-0.1mV P WAVE IN V1/V2] INFERIOR MYOCARDIAL INFARCTION , OF INDETERMINATE AGE [40+ ms Q WAVE AND/OR ST/T ABNORMALITY IN II/aVF] NONSPECIFIC ST ABNORMALITY ABNORMAL ECG COMPARED TO ECG 09/27/2022 13:40:53 MYOCARDIAL INFARCT FINDING NOW PRESENT Electronically Signed On 12-05-2022 9:09:14 CDT by Jose Carlos Barrera M.D.
--- NOTE | 2022-12-04 15:16 | ED.AMS ---
HPI - Altered Mental Status General Chief Complaint: Altered Mental Status Stated Complaint: AMS History of Present Illness HPI narrative: 59-year-old male presented to the department for evaluation of suspected seizure-like activity. states that the patient does drink approximately 12 pack of beer a day history of states that the patient has been increasingly fatigued over the course of the last week. states today that the patient had a yelp and she went to check on him and he was unresponsive and did have some twitching and then developed some sonorous respirations. states this episode lasted approximately 4 minutes and she called EMS. Patient was still minimally responsive when EMS arrived but then he did improve and EMS was able to walk the [facility]. The patient mated to the [facility] he did become mildly combative so he was treated with IM Haldol. Upon arrival to the ED patient was alert but confused. Patient denies any complaints. Patient does have a prior history of alcohol abuse, hypokalemia, hypocalcemia and hypomagnesemia. Related Data Home Medications Medication Instructions Recorded Confirmed atorvastatin 80 mg tablet 80 mg PO DAILY 06/19/19 09/27/22 folic acid 1 mg tablet 1 mg PO DAILY 06/19/19 09/27/22 lisinopril 10 mg tablet 30 mg PO DAILY 06/19/19 09/27/22 wiggrdev-xsf-krqxo acid 400 1 tablet PO DAILY 06/19/19 09/27/22 mcg-coQ10 250 mcg-lycop 375 mcg-lut tablet (Theragran-M Premier 50 Plus) thiamine HCl (vitamin B1) 100 mg 100 mg PO DAILY 06/19/19 09/27/22 tablet omeprazole magnesium 20 mg 20 mg PO DAILY 01/16/21 09/27/22 tablet,delayed release (Prilosec OTC) ezetimibe 10 mg tablet 10 mg PO DAILY 09/27/22 09/27/22 metoprolol succinate 100 mg 100 mg PO DAILY 09/27/22 09/27/22 tablet,extended release 24 hr Allergies Allergy/AdvReac Type Severity Reaction Status Date / Time amoxicillin Allergy Unknown Rash Verified 09/28/22 08:50 ampicillin Allergy Unknown Rash Verified 09/27/22 12:01 Penicillins Allergy Unknown Rash Verified 09/27/22 12:01 Review of Systems Review of Systems: All systems reviewed & are unremarkable except as noted in HPI and below PMFSH Past Medical History Medical History (Updated 12/04/22 @ 17:45 by Mauricio Power MD) Alcohol abuse Basal cell carcinoma of skin of upper extremity Cardiac arrest (02/2019) Coronary artery disease Gastroesophageal reflux disease Gout Gouty tophus of digit Hyperlipidemia Hypertension Osteoporosis Right leg DVT (03/2017) Torsades de pointes Surgical History Surgical History (Updated 12/04/22 @ 17:29 by Kavita Bazan PA-C) History of basal cell carcinoma excision Right hand. History of cardiac catheterization History of elbow surgery Left. History of five vessel coronary artery bypass Family History Family History Father Hyperlipidemia S/P CABG (coronary artery bypass graft) Diabetes mellitus Other Depression Social History Social History (Updated 12/04/22 @ 17:30 by Kavita Bazan PA-C) Social History: Surrogate medical decision maker: Celina Vieira, spouse. Code status: Full code. Smoking status: Never smoker Alcohol intake: current Drinks per week: 14 Substance use: never Lack of Transportation: No Lack of Food: Never True Current Housing: I Have Housing Concerned About Future Housing: No Difficulty Paying Gas/Electric Bills: No Difficulty Paying for Meds: No Currently Unemployed: YES Education: Bachelor's Degree Difficulty w/ Childcare or Family Care: No Additional living arrangements comments: Lives with his in [place]. Has 1 son. 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 Spiritual care concerns: No Exam Narrative: APPEARANCE: Well appearing, well nourished HEAD: normocephalic, atraumatic. EYES: PERRLA/EOMI, conjunct
[2022-12-04 15:30] LABS: Basophils Percent Auto 0.6 % (0.2-1.2); Eosinophils Percent Auto 0.6 % (0-4.4); Hematocrit 36.2 % (42.0-52.0); Hemoglobin 12.2 g/dL (14.0-18.0); Immature Granulocyte Absolute 0.03 K/mm3 (0.00-0.031); Immature Granulocyte Percent A 0.5 % (0-0.5); Lymphocytes Absolute Auto 0.92 K/mm3 (0.9-3.2); Lymphocytes Percent Auto 14.4 % (18.3-44.2); Mean Corpuscular HGB Conc 33.7 g/dl (32-36); Mean Corpuscular Hemoglobin 31.4 pg (26-34); Mean Corpuscular Volume 93.3 fl (80-100); Monocytes Absolute Auto 0.4 K/mm3 (0.1-0.6); Monocytes Percent Auto 6.6 % (2.6-8.5); Neutrophils Percent Auto 77.3 % (45.5-73.1); Platelet Count Result 186 k/mm3 (150-375); Red Blood Count 3.88 M/mm3 (4.6-6.20); Red Cell Distribution Width 13.3 % (11.5-14.5); White Blood Count 6.4 K/mm3 (4.5-10.0)
[2022-12-04] MEDS: LORazepam INJ (*CRX) 2 MG/ML VIAL IV PUSH (15:32)
[2022-12-04] MEDS: THIAMINE HCL 200 MG/2 ML VIAL 100 MG IV PUSH (15:36)
[2022-12-04 15:40] LABS: INR 1.1; Prothrombin Time 14.5 Seconds (11.1-14.7)
[2022-12-04 15:41] LABS: Partial Thromboplastin Time 25.1 SECONDS (22.3-36.8)
[2022-12-04 15:45] LABS: Magnesium 0.3 mg/dL (1.6-2.3)
[2022-12-04 15:46] LABS: Alanine Aminotransferase 31 U/L (6-50); Albumin Level 4.5 g/dL (3.5-5.1); Alkaline Phosphatase 70 U/L (38-126); Anion Gap 21 mmol/L (8-16); Aspartate Amino Transferase 56 U/L (17-59); Bilirubin,Total 0.5 mg/dL (0.2-1.3); Blood Urea Nitrogen 9 mg/dL (9-20); Calcium 6.1 mg/dL (8.4-10.2); Carbon Dioxide 18 mmol/L (22-30); Chloride 96 mmol/L (98-107); Estimated Glomerular Filt Rate > 60; Glucose 122 mg/dL (65-110); Potassium 2.9 mmol/L (3.4-5.0); Sodium 135 mmol/L (137-145)
[2022-12-04] MEDS: MAGNESIUM SULF 2 GM/WATER 50ML 2 GM/50 ML BAG IVPB (16:03)
[2022-12-04] MEDS: POTASSIUM CHLORIDE 20 MEQ PACKET (FOR LIQUID) 40 MEQ PO (16:03)
--- NOTE | 2022-12-04 16:19 | PC.NURSE ---
Patient off unit to CT>
[2022-12-04 16:54] LABS: Folic Acid > 20.0 ng/mL (2.76->20)
[2022-12-04] MEDS: CALCIUM GLUC 1,000 MG/NS 50 ML 1,000 MG/50 ML BAG 100 MG IVPB ×2 (16:59→22:48)
[2022-12-04 17:04] LABS: Lactic Acid Reflex 1.4 mmol/L (0.7-2.0)
[2022-12-04 17:04] LABS: Ammonia < 9 umol/L (9-30); Ethanol < 10 mg/dL (<10)
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
[2022-12-04] MEDS: KCL 20 MEQ/SW 100 ML 100 ML 50 MEQ IVPB (17:37)
[2022-12-04 18:44] LABS: Appearance Urine Clear (Clear); Bacteria Urine None Seen /hpf; Bilirubin Urine Negative (Negative); Blood Urine Negative (Negative); Color Urine Yellow (Yellow); Glucose Urine UA Negative (Negative); Ketones Urine Trace mg/dL (Negative); Leukocyte Esterase Ur Negative LEU/UL (Negative); Nitrate Urine Negative (Negative); Non Pathogenic Casts 0-2; Protein Urine Trace mg/dL (Negative); RBC Urine 0-2 /hpf (0-2); Specific Grav Ur 1.009 (1.001-1.035); Squamous Epithelial Cell Urine None seen /hpf (Few); Urobilinogen Urine 0.2 mg/dL (<2.0); WBC Urine 0-5 /hpf
[2022-12-04 18:50] LABS: Add Urine Microscopic? YES
[2022-12-04 18:55] LABS: Barbiturate Screen Urine Negative (Negative); Benzodiazepines Screen Urine Negative (Negative)
[2022-12-04 19:02] LABS: Amphetamine Screen Urine Negative (Negative); Cannabinoid Screen Urine Negative (Negative); Cocaine Screen Urine Negative (Negative); Methadone Screen Urine Negative (Negative); Opiate Screen Urine Negative (Negative); Phencyclidine Screen Urine Negative (Negative)
--- NOTE | 2022-12-04 19:15 | ADMGEN ---
This patient, Yeyo Vieira, was admitted to IMU Room 203-01. Patient/family oriented to hospital policies and general routines including ID bracelet, bed and alarms, visiting hours, pain management, procedures, bathroom and other care routines, personal items, smoking policy, room service/diet, and visiting hours. Information on how to activate the Rapid Response Team has been discussed. Patient/Family are encouraged to report perceived risks to care and to ask questions if they do not understand what they are told or what they should do.
[2022-12-04] MEDS: SODIUM CHLORIDE 0.9% IV 1,000 ML 100 ML IV CONT (19:55)
[2022-12-04 21:30] LABS: Anion Gap 4 mmol/L (8-16); Blood Urea Nitrogen 9 mg/dL (9-20); Carbon Dioxide 32 mmol/L (22-30); Chloride 96 mmol/L (98-107); Estimated CRCL calculation 97 ml/min; Estimated Glomerular Filt Rate > 60; Glucose 89 mg/dL (65-110); Magnesium 0.8 mg/dL (1.6-2.3); Phosphorus 2.6 mg/dL (2.5-4.5); Potassium 2.9 mmol/L (3.4-5.0); Sodium 132 mmol/L (137-145)
[2022-12-04] MEDS: MAGNESIUM SULF 4 GM/WATER100ML 4 GM/100 ML BAG IVPB (22:11)
[2022-12-04 22:43] LABS: Free T4 Free Thyroxine 1.41 ng/mL (0.78-2.19)
[2022-12-04] MEDS: POTASSIUM CHLORIDE INJ 40 MEQ in SODIUM CHLORIDE 0.9% IV 500 ML 130 MEQ IVPB (22:48)
[2022-12-04] MEDS: POTASSIUM CHLORIDE 20 MEQ ER TABLET 40 MEQ PO (22:49)
[2022-12-05] VITALS (18 sets, daily range): BP systolic 108–167; BP diastolic 63–85; PULSE 57–85; RESP 18–20; TEMP 36.2–36.5; O2SAT 96–100
[2022-12-05 04:33] LABS: Hematocrit 30.1 % (42.0-52.0); Hemoglobin 10.6 g/dL (14.0-18.0); Mean Corpuscular HGB Conc 35.2 g/dl (32-36); Mean Corpuscular Hemoglobin 33.3 pg (26-34); Mean Corpuscular Volume 94.7 fl (80-100); Mean Platelet Volume 10.4 fl (7.4-10.4); Platelet Count Result 178 k/mm3 (150-375); Red Blood Count 3.18 M/mm3 (4.6-6.20); Red Cell Distribution Width 14.4 % (11.5-14.5); White Blood Count 6.4 K/mm3 (4.5-10.0)
[2022-12-05 04:45] LABS: Alanine Aminotransferase 25 U/L (6-50); Albumin Level 3.5 g/dL (3.5-5.1); Alkaline Phosphatase 69 U/L (38-126); Anion Gap 4 mmol/L (8-16); Aspartate Amino Transferase 64 U/L (17-59); Bilirubin,Total 1.4 mg/dL (0.2-1.3); Blood Urea Nitrogen 7 mg/dL (9-20); Carbon Dioxide 29 mmol/L (22-30); Chloride 99 mmol/L (98-107); Estimated CRCL calculation 84 ml/min; Estimated Glomerular Filt Rate > 60; Glucose 87 mg/dL (65-110); Potassium 3.4 mmol/L (3.4-5.0); Sodium 132 mmol/L (137-145)
[2022-12-05 04:57] LABS: Magnesium 1.7 mg/dL (1.6-2.3)
[2022-12-05] MEDS: SODIUM CHLORIDE 0.9% IV 1,000 ML 100 ML IV CONT ×2 (06:41→19:22)
--- NOTE | 2022-12-05 09:03 | PM.IMPN ---
Progress Note: A&P Assessment and Plan (1) Altered mental status: Code(s): R41.82 - Altered mental status, unspecified Status: Acute Assessment and Plan: Likely postictal from seizure, appreciate neurology consultation (2) Unresponsive episode: Code(s): R40.4 - Transient alteration of awareness Status: Acute Assessment and Plan: Resolved, see above (3) Electrolyte abnormality: Code(s): E87.8 - Other disorders of electrolyte and fluid balance, not elsewhere classified Status: Acute Assessment and Plan: Resolved, monitor (4) Alcohol abuse: Code(s): F10.10 - Alcohol abuse, uncomplicated Status: Acute Assessment and Plan: CIWA protocol, monitor, improving, last CIWA = 2 (5) Hypertension: Code(s): I10 - Essential (primary) hypertension Status: Acute Assessment and Plan: Blood pressures reviewed 12/05 (6) Gastroesophageal reflux disease: Code(s): K21.9 - Gastro-esophageal reflux disease without esophagitis Status: Acute Assessment and Plan: Stable (7) Gout: Code(s): M10.9 - Gout, unspecified Status: Acute Plan DVT prophylaxis with SCDs GI prophylaxis not indicated Code status full code Subjective Date/time seen: 12/05/22 09:03 Interval history: No overnight events noted. No chest pain or shortness of breath. No nausea, vomiting or diarrhea. No fevers or chills. Review of Systems Review of Systems: 12 point review of systems was assessed and was negative except as noted in the HPI Exam Narrative: General: No acute distress, alert and oriented per baseline HEENT: Atraumatic, normocephalic, mucous membranes moist CV: Regular rate and rhythm, S1, S2 Lungs: Clear to auscultation bilaterally, no rales or crackles noted, no wheezes, good air entry Abdomen: Soft, nontender, nondistended Extremities: Normal to inspection Skin: No rashes noted, no lesions or wounds seen Psych: Euthymic, normal affect Objective Data Vital Signs Vital Signs: Vital Signs - 24 hr 12/04/22 15:05 12/04/22 15:15 12/04/22 15:16 Temperature 98.2 F Pulse Rate 101 H 103 H 100 Respiratory Rate 22 H 26 H 25 H Blood Pressure 167/104 H 167/104 H Pulse Oximetry 95 95 Oxygen Delivery Room Air 12/04/22 15:30 12/04/22 15:31 12/04/22 15:45 Temperature Pulse Rate 91 92 86 Respiratory Rate 25 H 21 H 16 Blood Pressure 143/83 H Pulse Oximetry 94 94 93 Oxygen Delivery 12/04/22 15:46 12/04/22 15:47 12/04/22 16:00 Temperature Pulse Rate 85 86 84 Respiratory Rate 18 15 19 Blood Pressure 129/79 Pulse Oximetry 91 91 Oxygen Delivery 12/04/22 16:01 12/04/22 16:18 12/04/22 16:19 Temperature Pulse Rate 88 85 87 Respiratory Rate 18 20 Blood Pressure 123/73 127/72 Pulse Oximetry 90 93 Oxygen Delivery 12/04/22 16:30 12/04/22 16:31 12/04/22 16:45 Temperature Pulse Rate 87 85 81 Respiratory Rate 19 15 19 Blood Pressure 131/70 Pulse Oximetry 91 93 Oxygen Delivery 12/04/22 16:46 12/04/22 17:00 12/04/22 17:01 Temperature Pulse Rate 80 83 79 Respiratory Rate 18 19 18 Blood Pressure 126/68 144/74 H Pulse Oximetry Oxygen Delivery 12/04/22 17:15 12/04/22 17:16 12/04/22 17:30 Temperature Pulse Rate 77 78 72 Respiratory Rate 19 19 18 Blood Pressure 126/68 Pulse Oximetry 96 95 98 Oxygen Delivery 12/04/22 17:31 12/04/22 18:42 12/04/22 17:32 Temperature 97.7 F Pulse Rate 73 74 72 Respiratory Rate 17 18 16 Blood Pressure 149/75 H 165/75 H Pulse Oximetry 95 97 98 Oxygen Delivery 12/04/22 17:45 12/04/22 17:47 12/04/22 18:00 Temperature Pulse Rate 85 98 81 Respiratory Rate 15 19 20 Blood Pressure 173/108 H Pulse Oximetry Oxygen Delivery 12/04/22 18:01 12/04/22 18:15 12/04/22 18:16 Temperature Pulse Rate 80 73 72 Respiratory Rate 22 H 20 20 Blood Pres
[2022-12-05] MEDS: CALCIUM/VITAMIN D 250 MG TABLET 1 TABLET PO (09:04)
[2022-12-05] MEDS: EZETIMIBE 10 MG TABLET PO (09:04)
[2022-12-05] MEDS: THIAMINE HCL 100 MG TABLET PO (09:04)
[2022-12-05] MEDS: FOLIC ACID 1 MG TABLET PO (09:04)
[2022-12-05] MEDS: MAGNESIUM OXIDE 200 MG TABLET PO (09:05)
[2022-12-05] MEDS: ATORVASTATIN 40 MG TABLET 80 MG PO (09:05)
[2022-12-05] MEDS: THERAPEUTIC MULTIVITAMINS/MINERALS TAB (*BKC) 1 TABLET PO (09:06)
[2022-12-05] MEDS: lisinopriL 10 MG TABLET 30 MG PO (09:06)
[2022-12-05] MEDS: METOPROLOL SUCCINATE EXT REL 100 MG TABCR PO (09:10)
--- NOTE | 2022-12-05 19:53 | PM.EVENT ---
Event Note Event Note Event Note: I received a call from the patient's nurse at about 19:30. Venous Doppler ultrasound of the lower extremity showed incomplete compression of the left popliteal vein suggesting partial DVT. Chart reviewed and he does have a history of DVT several years ago. He was given a 1 time dose of therapeutic Lovenox. Further treatment deferred to [facility] hospitalist tomorrow.
[2022-12-05] MEDS: ENOXAPARIN 80 MG/0.8 ML SYRINGE 70 MG SUB-Q (20:32)
[2022-12-06] VITALS (18 sets, daily range): BP systolic 134–211; BP diastolic 64–94; PULSE 61–77; RESP 18–20; TEMP 36.4–36.7; O2SAT 97–100
--- NOTE | 2022-12-06 | ECHO_ITS ---
Patient Info Name: Yeyo Vieira Age: 67 years : 1955 Gender: Male Ht: 68 in Wt: 157 lbs BSA: 1.85 m2 HR: 66 bpm BP: 145 / 65 mmHg Heart Rhythm: Sinus Rhythm Technical Quality: Fair Exam Date: 12/06/2022 9:12 AM Exam Location: [facility] Card Pulmonary Patient Status: Inpatient Admit Date: 12/04/2022 Staff Ordering Physician: Kavita Bazan PA-C Manager Party: Shruti Goldman RDCS Attending Provider: Yeyo Kaur MD Referring Physician: Hortensia CALIX; Exam Type: CA echo doppler color flow Study Info Indications - UNRESPONSIVE EPISODE, HTN, CAD, HX TORSADES Complete two-dimensional, color flow and Doppler transthoracic echocardiogram is performed. Summary 1. Complete two-dimensional, color flow and Doppler transthoracic echocardiogram is performed. 2. Normal left ventricular size with overall normal systolic function and grade 1 diastolic noncompliance. 3. Normal appearing in normally functioning aortic and mitral valves. 4. Mild left atrial enlargement. Left Ventricle Left ventricular chamber dimension is normal. Left ventricular systolic function is normal, estimated at 55-60%. The left ventricular diastolic function is grade I diastolic dysfunction. Right Ventricle Right ventricular chamber dimension is normal. Left Atria Left atrial chamber dimension is mildly enlarged. Right Atria Right atrial chamber dimension is normal. Aortic Valve The aortic valve is normal. Pulmonic Valve The pulmonic valve is normal. Mitral Valve The mitral valve has normal leaflets. Tricuspid Valve The tricuspid valve leaflets are normal. Pericardium/Pleural The pericardium appears normal. Aorta The aortic root size at the sinus of Valsalva is normal. Left Ventricular Outflow Tract Name Value Normal LVOT 2D LVOT Diameter 2.1 cm LVOT Doppler LVOT Peak Gradient 4 mmHg LVOT Mean Gradient 2 mmHg LVOT VTI 24 cm LVOT VTI/AV VTI Ratio 0.8 LVOT Stroke Volume 82 ml LVOT CO 5.3 l/min LVOT CI 2.8 l/min/m2 Pulmonic Valve Name Value Normal RVOT Doppler RVOT Peak Gradient 2 mmHg PV Doppler PV Peak Gradient 4 mmHg Mitral Valve Name Value Normal MV Doppler MV Decel Dillon 369 cm/s2 MV PHT 72 ms MV Area (PHT) 3.0 cm2 4.0-5.0 MV Diastolic Function
[2022-12-06] MEDS: SODIUM CHLORIDE 0.9% IV 1,000 ML 100 ML IV CONT (05:07)
--- NOTE | 2022-12-06 08:16 | PM.IMPN ---
Progress Note: A&P Assessment and Plan (1) Altered mental status: Code(s): R41.82 - Altered mental status, unspecified Status: Acute Assessment and Plan: Likely postictal from seizure, appreciate neurology consultation Check MRI, EEG (2) Unresponsive episode: Code(s): R40.4 - Transient alteration of awareness Status: Acute Assessment and Plan: Resolved, see above (3) Electrolyte abnormality: Code(s): E87.8 - Other disorders of electrolyte and fluid balance, not elsewhere classified Status: Acute Assessment and Plan: Resolved, monitor (4) Alcohol abuse: Code(s): F10.10 - Alcohol abuse, uncomplicated Status: Acute Assessment and Plan: CIWA protocol, monitor, improving, last CIWA = 0 (5) Hypertension: Code(s): I10 - Essential (primary) hypertension Status: Acute Assessment and Plan: Blood pressures reviewed 12/06 (6) Gastroesophageal reflux disease: Code(s): K21.9 - Gastro-esophageal reflux disease without esophagitis Status: Acute Assessment and Plan: Stable (7) Gout: Code(s): M10.9 - Gout, unspecified Status: Acute Assessment and Plan: outpatient treatment pending, plan for OR to remove tophi next month (8) DVT (deep venous thrombosis): Code(s): I82.409 - Acute embolism and thrombosis of unspecified deep veins of unspecified lower extremity Status: Acute Assessment and Plan: start eliquis 10 mg BID x 7 days, then 5 mg BID (9) Hypocalcemia: Code(s): E83.51 - Hypocalcemia Status: Acute Assessment and Plan: Calcium gluconate 2 g x 1 Check PTH, vitamin D, ionized Ca, urine calcium Plan DVT prophylaxis with SCDs GI prophylaxis not indicated Code status full code Subjective Date/time seen: 12/06/22 08:16 Interval history: No overnight events noted. No chest pain or shortness of breath. No nausea, vomiting or diarrhea. No fevers or chills. No seizure activity. Feels much better than yesterday. Review of Systems Review of Systems: 12 point review of systems was assessed and was negative except as noted in the HPI Exam Narrative: General: No acute distress, alert and oriented per baseline HEENT: Atraumatic, normocephalic, mucous membranes moist CV: Regular rate and rhythm, S1, S2 Lungs: Clear to auscultation bilaterally, no rales or crackles noted, no wheezes, good air entry Abdomen: Soft, nontender, nondistended Extremities: Normal to inspection Skin: No rashes noted, no lesions or wounds seen Psych: Euthymic, normal affect Objective Data Vital Signs Vital Signs: Vital Signs - 24 hr 12/05/22 09:10 12/05/22 10:00 12/05/22 12:29 Temperature 97.3 F L Pulse Rate 85 72 70 Respiratory Rate 20 Blood Pressure 112/63 Pulse Oximetry 98 Oxygen Delivery 12/05/22 15:56 12/05/22 12:00 12/05/22 16:00 Temperature 97.6 F Pulse Rate 68 Respiratory Rate 18 Blood Pressure 108/63 Pulse Oximetry 97 Oxygen Delivery Room Air Room Air 12/05/22 12:00 12/05/22 14:00 12/05/22 16:00 Temperature Pulse Rate 73 70 65 Respiratory Rate Blood Pressure Pulse Oximetry Oxygen Delivery 12/05/22 18:00 12/05/22 20:00 12/05/22 20:00 Temperature Pulse Rate 65 Respiratory Rate Blood Pressure 144/74 H 167/69 H Pulse Oximetry Oxygen Delivery 12/05/22 20:00 12/05/22 20:00 12/05/22 20:00 Temperature 97.5 F L Pulse Rate 63 74 Respiratory Rate 20 Blood Pressure 136/68 Pulse Oximetry 100 Oxygen Delivery Room Air 12/05/22 22:00 12/05/22 23:43 12/05/22 23:55 Temperature 97.5 F L Pulse Rate 63 63 Respiratory Rate 20 Blood Pressure 140/85 Pulse Oximetry 100 Oxygen Delivery Room Air 12/06/22 00:00 12/06/22 02:00 12/06/22 04:00 Temperature Pulse Rate 77 63 Respiratory Rate Blood Press
[2022-12-06] MEDS: ATORVASTATIN 40 MG TABLET 80 MG PO (08:39)
[2022-12-06] MEDS: lisinopriL 10 MG TABLET 30 MG PO (08:39)
[2022-12-06] MEDS: MAGNESIUM OXIDE 200 MG TABLET PO (08:39)
[2022-12-06] MEDS: FOLIC ACID 1 MG TABLET PO (08:39)
[2022-12-06] MEDS: EZETIMIBE 10 MG TABLET PO (08:39)
[2022-12-06] MEDS: THIAMINE HCL 100 MG TABLET PO (08:39)
[2022-12-06] MEDS: METOPROLOL SUCCINATE EXT REL 100 MG TABCR PO (08:39)
[2022-12-06] MEDS: CALCIUM/VITAMIN D 250 MG TABLET 1 TABLET PO (08:39)
[2022-12-06] MEDS: THERAPEUTIC MULTIVITAMINS/MINERALS TAB (*BKC) 1 TABLET PO (08:40)
[2022-12-06] MEDS: APIXABAN 5 MG TABLET 10 MG PO ×2 (09:35→21:03)
--- NOTE | 2022-12-06 11:39 | WPDNEURCNPN ---
Assessment and Plan Assessment and plan (1) Seizure: Code(s): R56.9 - Unspecified convulsions Status: Acute (2) Alcohol abuse: Code(s): F10.10 - Alcohol abuse, uncomplicated Status: Acute (3) Altered mental status: Code(s): R41.82 - Altered mental status, unspecified Status: Acute Plan Yeyo Vieira is a 67 year old male with a history of chronic alcohol use, torsades de pointes, CAD, HTN, HLD presenting due to altered mental status. Concern that patient may have had a seizure at home prior to admission. There does not seem to be any history of abrupt cessation of alcohol use preceding the event. There does not seem to be any other provoking factor -- tox screen negative. - Recommend MRI brain without contrast and routine EEG - No anti-seizure medications indicated at this time Consult date: 12/06/22 Reason for consult: Altered mental status HPI: Yeyo Vieira is a 67 year old male with a history of chronic alcohol use, torsades de pointes, CAD, HTN, HLD presenting due to altered mental status. Per patient's , he has not been feeling for the past couple of weeks, with progressive weakness and gait unsteadiness. On the day of presentation, noted that he made a loud noise and when she came to check on him he was unresponsive and stiff. He bit the tip of his tongue and bottom lip but did not have any additional seizure-like activity. He was confused afterwards. EMS was called. He was combative so he was given 10mg Haldol. On presentation to the ED, his CT head showed no acute changes. He was found to have a DVT on lower extremity doppler and has been started on Eliquis. Patient's last drink was reportedly at 2pm on day of presentation per . He drinks about 12 beers per day per , although patient denies this. He reports drinking 3-4 beers per day and mentioned that he was trying to reduce his drinking to 2 beers per day. He did drink prior to the day of admission, but denies drinking on day of presentation because it was too early in the day . 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 Review of Systems Constitutional: Constitutional: Denies chills, Denies fever(s) and Denies weight loss Eyes: Eyes: Denies diplopia and Denies loss of vision ENT: Denies dizziness, Denies hearing loss and Denies tinnitus Cardiovascular: Cardiovascular: Denies chest pain, Denies syncope and Denies dyspnea Respiratory: Respiratory: Denies cough, Denies dyspnea and Denies wheezing Gastrointestinal: Gastrointestinal: Denies abdominal pain, Denies change in bowel habits and Denies vomiting Genitourinary: Genitourinary: Denies urinary incontinence Musculoskeletal: Musculoskeletal: Denies arthralgias and Denies joint swelling Integumentary/Breasts: Skin/Breast: Denies new lesions and Denies rash Neurologic: Reports as per HPI, Reports confusion, Denies dizziness, Denies syncope and Denies loss of vision Psychiatric: Psychiatric: Denies anxiety, Reports confusion and Denies depression Endocrine: Endocrine: Denies cold intolerance and Denies heat intolerance Hematologic/Lymphatic: Hematologic/Lymphatic: Denies easy bleeding and Denies easy bruising Allergic/Immunologic: Allergic/Immunologic: Denies no additional allergic/immunologic complaints and Denies wheezing PMFSH Past Medical History Medical History Alcohol abuse Basal cell carcinoma of skin of upper extremity Cardiac arrest (02/2019) Secondary to torsades de pointes according to his . Coronary artery disease Gastroesophageal reflux disease Gout Gouty tophus of digit Hyperlipidemia Hypertension Osteoporosis Right leg DVT (03/2017) Torsades de pointes Surgical History Surgical History History of basal cell carcinoma excision Right hand. History of cardiac catheterization History
[2022-12-06] MEDS: CALCIUM GLUC 1,000 MG/NS 50 ML 1,000 MG/50 ML BAG 100 MG IVPB ×3 (13:04→17:04)
[2022-12-06 13:36] LABS: Iron 24 ug/dL (49-181)
[2022-12-06 13:37] LABS: Calcium 6.2 mg/dL (8.4-10.2); Magnesium 1.5 mg/dL (1.6-2.3); Phosphorus 1.6 mg/dL (2.5-4.5)
[2022-12-06 13:45] LABS: Percent Iron Saturation 7 % (20-50)
[2022-12-06] MEDS: POTASSIUM/PHOSPHORUS/SODIUM 1.5 GM PACKET 1 PACKET PO (17:04)
[2022-12-06] MEDS: MAGNESIUM SULF 1 GM/D5W 100 ML 1 GM/100 ML BAG IVPB (17:04)
[2022-12-06] MEDS: IRON SUCROSE COMPLEX 500 MG in SODIUM CHLORIDE 0.9% IV 250 ML 78.57 MG IVPB (18:09)
--- NOTE | 2022-12-06 20:27 | PC.NURSE ---
This patient, Yeyo Vieira, was transferred to [facility] on 12/06/22 at 2028. Personal belongings sent with patient. Report given to BRITTANY Harris. Appropriate documentation sent with patient.
[2022-12-06] MEDS: hydrALAZINE HCL 20 MG/ML VIAL IV PUSH (22:08)
[2022-12-07] VITALS (7 sets, daily range): BP systolic 130–171; BP diastolic 80–96; PULSE 74–85; RESP 18; TEMP 36.2–36.4; O2SAT 96–100
[2022-12-07] MEDS: EZETIMIBE 10 MG TABLET PO (08:07)
[2022-12-07] MEDS: METOPROLOL SUCCINATE EXT REL 100 MG TABCR PO (08:07)
[2022-12-07] MEDS: THIAMINE HCL 100 MG TABLET PO (08:07)
[2022-12-07] MEDS: FOLIC ACID 1 MG TABLET PO (08:07)
[2022-12-07] MEDS: lisinopriL 10 MG TABLET 30 MG PO (08:08)
[2022-12-07] MEDS: THERAPEUTIC MULTIVITAMINS/MINERALS TAB (*BKC) 1 TABLET PO (08:09)
[2022-12-07] MEDS: MAGNESIUM OXIDE 200 MG TABLET PO (08:09)
[2022-12-07] MEDS: CALCIUM/VITAMIN D 250 MG TABLET 1 TABLET PO (08:09)
[2022-12-07] MEDS: ATORVASTATIN 40 MG TABLET 80 MG PO (08:09)
[2022-12-07] MEDS: APIXABAN 5 MG TABLET 10 MG PO (08:09)
[2022-12-07] MEDS: IRON SUCROSE COMPLEX 500 MG in SODIUM CHLORIDE 0.9% IV 250 ML 78.57 MG IVPB (08:10)
--- NOTE | 2022-12-07 10:10 | WPDNEUROLOGY ---
Neurology EEG Report General Information Date of Study: 12/06/22 TEST Routine EEG DIAGNOSIS Concern for new onset seizure CONDITION OF RECORDING Awake, drowsy, asleep EEG NUMBER [id number] CLINICAL HISTORY Patient was brought in after found him unresponsive with full body stiffening. No prior history of seizures. Patient does have a history of chronic alcohol use. EEG DESCRIPTION During the awake state with eyes closed the background consists of 9 Hz posterior dominant rhythm which attenuates appropriately with eye opening. The recording is continuous. There is a well developed anterior-posterior gradient. No significant asymmetries of background activities are noted. With drowsiness there is waxing and waning of the dominant rhythm with eventual replacement by a mixture of beta, alpha, and theta activity. As the patient enters stage II sleep, symmetrical spindles are present. Arousal is unremarkable. There are no epileptiform discharges or seizures during this recording. Hyperventilation and photic stimulation were not performed. IMPRESSION This is a normal routine EEG recorded in awake and asleep states. There are no electrographic seizures identified, nor are there any epileptiform discharges. Please note that a normal EEG cannot exclude a seizure disorder. Clinical correlation is recommended.
--- NOTE | 2022-12-07 11:44 | WPDNEUROPN ---
Progress Note: A&P Assessment and Plan (1) Altered mental status: Code(s): R41.82 - Altered mental status, unspecified Status: Acute (2) Unresponsive episode: Code(s): R40.4 - Transient alteration of awareness Status: Acute (3) Alcohol abuse: Code(s): F10.10 - Alcohol abuse, uncomplicated Status: Acute (4) DVT (deep venous thrombosis): Code(s): I82.409 - Acute embolism and thrombosis of unspecified deep veins of unspecified lower extremity Status: Acute Plan Yeyo Vieira is a 67 year old male with a history of chronic alcohol use, torsades de pointes, CAD, HTN, HLD presenting due to altered mental status. Concern that patient may have had a seizure at home prior to admission. There does not seem to be any history of abrupt cessation of alcohol use preceding the event. There does not seem to be any other provoking factor -- tox screen negative. MRI brain and routine EEG unrevealing. - No additional neurological work-up needed during this hospitalization - No anti-seizure medications indicated at this time Subjective Date/time seen: 12/07/22 11:44 Interval history: Yeyo Vieira is a 67 year old male with a history of chronic alcohol use, torsades de pointes, CAD, HTN, HLD presenting due to altered mental status. Per patient's , he has not been feeling for the past couple of weeks, with progressive weakness and gait unsteadiness. On the day of presentation, noted that he made a loud noise and when she came to check on him he was unresponsive and stiff. He bit the tip of his tongue and bottom lip but did not have any additional seizure-like activity. He was confused afterwards. EMS was called. He was combative so he was given 10mg Haldol. On presentation to the ED, his CT head showed no acute changes. He was found to have a DVT on lower extremity doppler and has been started on Eliquis. Patient's last drink was reportedly at 2pm on day of presentation per . He drinks about 12 beers per day per , although patient denies this. He reports drinking 3-4 beers per day and mentioned that he was trying to reduce his drinking to 2 beers per day. He did drink prior to the day of admission, but denies drinking on day of presentation because it was too early in the day . 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 Patient reports feeling well today. He denies any active concerns. Review of Systems Constitutional: Constitutional: Denies chills, Denies fever(s) and Denies weight loss Eyes: Eyes: Denies diplopia and Denies loss of vision ENT: Denies dizziness, Denies hearing loss and Denies tinnitus Cardiovascular: Cardiovascular: Denies chest pain, Denies syncope and Denies dyspnea Respiratory: Respiratory: Denies cough, Denies dyspnea and Denies wheezing Gastrointestinal: Gastrointestinal: Denies abdominal pain, Denies change in bowel habits and Denies vomiting Genitourinary: Genitourinary: Denies urinary incontinence Musculoskeletal: Musculoskeletal: Denies arthralgias and Denies joint swelling Integumentary/Breasts: Skin/Breast: Denies new lesions and Denies rash Neurologic: Reports as per HPI, Reports confusion, Denies dizziness, Denies syncope and Denies loss of vision Psychiatric: Psychiatric: Denies anxiety, Reports confusion and Denies depression Endocrine: Endocrine: Denies cold intolerance and Denies heat intolerance Hematologic/Lymphatic: Hematologic/Lymphatic: Denies easy bleeding and Denies easy bruising Allergic/Immunologic: Allergic/Immunologic: Denies no additional allergic/immunologic complaints and Denies wheezing Exam Const: General: comfortable and no acute distress HENMT: Mouth: Yes moist mucous membranes Eyes: Pupils: Equal, round and reactive pupils present EOM: EOMs intact bilaterally Resp: Effort & Inspection: normal respiratory effort Skin: General skin exam: normal color Neuro: Othe
[2022-12-07 15:20] LABS: Basophils Percent Auto 0.4 % (0.2-1.2); Eosinophils Percent Auto 0.3 % (0-4.4); Hemoglobin 12.2 g/dL (14.0-18.0); Immature Granulocyte Absolute 0.04 K/mm3 (0.00-0.031); Immature Granulocyte Percent A 0.4 % (0-0.5); Lymphocytes Absolute Auto 0.69 K/mm3 (0.9-3.2); Lymphocytes Percent Auto 6.3 % (18.3-44.2); Mean Corpuscular HGB Conc 34.9 g/dl (32-36); Mean Corpuscular Hemoglobin 33.7 pg (26-34); Mean Corpuscular Volume 96.7 fl (80-100); Mean Platelet Volume 10.4 fl (7.4-10.4); Monocytes Percent Auto 9.4 % (2.6-8.5); Neutrophils Absolute Auto 9.1 K/mm3 (1.3-6.7); Neutrophils Percent Auto 83.2 % (45.5-73.1); Platelet Count Result 255 k/mm3 (150-375); Red Blood Count 3.62 M/mm3 (4.6-6.20); Red Cell Distribution Width 14.8 % (11.5-14.5); White Blood Count 10.9 K/mm3 (4.5-10.0)
[2022-12-07 15:41] LABS: Alanine Aminotransferase 27 U/L (6-50); Alkaline Phosphatase 76 U/L (38-126); Anion Gap 6 mmol/L (8-16); Aspartate Amino Transferase 52 U/L (17-59); Bilirubin,Total 0.6 mg/dL (0.2-1.3); Blood Urea Nitrogen 8 mg/dL (9-20); Calcium 7.6 mg/dL (8.4-10.2); Carbon Dioxide 32 mmol/L (22-30); Chloride 99 mmol/L (98-107); Estimated CRCL calculation 84 ml/min; Estimated Glomerular Filt Rate > 60; Glucose 106 mg/dL (65-110); Potassium 4.6 mmol/L (3.4-5.0); Sodium 137 mmol/L (137-145)
[2022-12-07 15:59] LABS: Magnesium 1.7 mg/dL (1.6-2.3); Phosphorus 2.2 mg/dL (2.5-4.5)
--- NOTE | 2022-12-07 18:33 | PM.DS ---
DS: Admitting Diagnosis Discharge Date 12/07/2022 Admitting Diagnosis Altered mental status DS: Discharge Diagnosis Discharge Diagnosis (1) Altered mental status: Code(s): R41.82 - Altered mental status, unspecified Status: Acute Assessment and Plan: Likely postictal from seizure, appreciate neurology consultation Check MRI, EEG (2) Unresponsive episode: Code(s): R40.4 - Transient alteration of awareness Status: Acute Assessment and Plan: Resolved, see above (3) Electrolyte abnormality: Code(s): E87.8 - Other disorders of electrolyte and fluid balance, not elsewhere classified Status: Acute Assessment and Plan: Resolved, monitor (4) Alcohol abuse: Code(s): F10.10 - Alcohol abuse, uncomplicated Status: Acute Assessment and Plan: CIWA protocol, monitor, improving, last CIWA = 0 (5) Hypertension: Code(s): I10 - Essential (primary) hypertension Status: Acute Assessment and Plan: Blood pressures reviewed 12/06 (6) Gastroesophageal reflux disease: Code(s): K21.9 - Gastro-esophageal reflux disease without esophagitis Status: Acute Assessment and Plan: Stable (7) Gout: Code(s): M10.9 - Gout, unspecified Status: Acute Assessment and Plan: outpatient treatment pending, plan for OR to remove tophi next month (8) DVT (deep venous thrombosis): Code(s): I82.409 - Acute embolism and thrombosis of unspecified deep veins of unspecified lower extremity Status: Acute Assessment and Plan: start eliquis 10 mg BID x 7 days, then 5 mg BID (9) Hypocalcemia: Code(s): E83.51 - Hypocalcemia Status: Acute Assessment and Plan: Calcium gluconate 2 g x 1 Check PTH, vitamin D, ionized Ca, urine calcium Plan DVT prophylaxis with SCDs GI prophylaxis not indicated Code status full code DS: Summary Hospital Course Hospital Course: 67-year-old male with history of alcohol abuse is presenting with altered mental status. Neurology was consulted, EEG, MRI ordered. Etiology thought to be withdrawal seizures. Patient CIWA slowly trended down to 0, he was weaned off Librium. No symptoms recurred. He was found to have significant electrolyte abnormalities consistent with alcohol abuse. Extensive education provided. Repletion provided. Rechecks improved. Patient also noted to have DVT, started on Eliquis. Discharged on this medication. PPI was discontinued due to hypomagnesiumia, started on Pepcid instead. Please see above and med rec for details. Time Spent with Patient Time attestation: Total time spent providing and/or coordinating discharge services: Exam Narrative: General: No acute distress, alert and oriented per baseline HEENT: Atraumatic, normocephalic, mucous membranes moist CV: Regular rate and rhythm, S1, S2 Lungs: Clear to auscultation bilaterally, no rales or crackles noted, no wheezes, good air entry Abdomen: Soft, nontender, nondistended Extremities: Normal to inspection Skin: No rashes noted, no lesions or wounds seen Psych: Euthymic, normal affect DS: Data Data Completed and Pending Labs on day of discharge: Labs from last 24 hours 12/07/22 14:53 WBC 10.9 H RBC 3.62 L Hgb 12.2 L Hct 35.0 L MCV 96.7 MCH 33.7 MCHC 34.9 RDW 14.8 H Plt Count 255 MPV 10.4 Immature Gran % (Auto) 0.4 Neut % (Auto) 83.2 H Lymph % (Auto) 6.3 L [place] % (Auto) 9.4 H Eos % (Auto) 0.3 Baso % (Auto) 0.4 Lymph # (Auto) 0.69 L [place] # (Auto) 1.0 H Eos # (Auto) 0.0 Baso # (Auto) 0.0 Abs Immat Gran (auto) 0.04 H Absolute Neuts (auto) 9.1 H Absolute Nucleated RBC 0.0 Nucleated RBC % 0.0 Sodium 137 Potassium 4.6 Chloride 99 Carbon Dioxide 32 H Anion Gap 6 L BUN 8 L Creatinine 0.70 Estim Creat Clear Calc 84 Estimated GFR > 60 Glucose 106 Calcium 7.6 L Phosphorus 2.2
[2022-12-09 07:49] LABS: Calcium/Creatinine Ratio, Ur 9 mg/g creat (10-240); Urine Calcium, Random 0.3 mg/dL (***)
[2022-12-09 16:30] LABS: Ionized Calcium 3.9 mg/dL (4.7-5.5)
== END 2022-12-07 18:36 | disposition home or self-care (01) | DRG 897 ==
LOC: ANHED 17:45 → ANHIMU 18:14 → ANH3MEDSUR 12-06 20:51
PROVIDERS: Physician Assistant; Admitting Provider Chiropractor; Emergency Provider Emergency Medicine; PCP Family Medicine; Visit Provider Student in an Organized Health Care Education/Training Program
DX: F10.139 Alcohol abuse with withdrawal, unspecified (principal); G40.89 Other seizures; I82.432 Acute embolism and thrombosis of left popliteal vein; I25.10 Atherosclerotic heart disease of native coronary artery without angina pectoris; K21.9 Gastro-esophageal reflux disease without esophagitis; E78.5 Hyperlipidemia, unspecified; M81.0 Age-related osteoporosis without current pathological fracture; I10 Essential (primary) hypertension; M10.9 Gout, unspecified; E86.0 Dehydration; E83.51 Hypocalcemia; Z85.828 Personal history of other malignant neoplasm of skin; Z86.718 Personal history of other venous thrombosis and embolism; Z95.1 Presence of aortocoronary bypass graft
CPT/HCPCS: 36415; 70450; 70551; 71045; 80048; 80053; 80307; 81001; 82140; 82306; 82310; 82330; 82570; 82607; 82728; 82746; 83540; 83550; 83605; 83735; 84100; 84439; 84443; 85025; 85027; 85610; 85730; 93005; 93306; 93880; 93970; 95816; 96365; 96367; 96375; 99285; A9270; G0378; J0360; J0612; J1650; J1756; J2060; J3411; J3475; J3480; J7030; J7040; J7050

== ENCOUNTER 2023-04-20 11:18 | Outpatient (CLI) | payer OTHER, MEDICARE, SELFPAY ==
[2023-04-20 11:54] LABS: Hematocrit 31.1 % (42.0-52.0); Hemoglobin 11.5 g/dL (14.0-18.0)
== END 2023-04-20 11:19 | disposition home or self-care (01) ==
LOC: ANHSURGERY 11:24
PROVIDERS: Anesthesiology; PCP Family Medicine; Visit Provider Plastic Surgery
DX: Z01.818 Encounter for other preprocedural examination (principal); Z78.9 Other specified health status
CPT/HCPCS: 36415; 85014; 85018

== ENCOUNTER 2023-04-25 00:39 | Day surgery (SDC) | payer OTHER, MEDICARE, SELFPAY ==
--- NOTE | 2023-04-19 11:49 | PC.NURSE ---
Report to the Outpatient Waiting Room, entrance under the green pavilion located off [facility], at time _0600 on date __04/25/23 . Planned Procedure Time: __0730 . Time changes happen often and if your time is changed the preop area will call you the afternoon before. - You and your visitor will be asked to self-screen and do not enter if you have any COVID symptoms. - A mask is optional within the hospital at this time. NOTHING TO EAT OR DRINK 8 HOURS PRIOR TO SURGERY PER DR LOPEZ Take the following medications with a SIP of water the morning of surgery: __METOPROLOL DO NOT STOP ANY OF YOUR OTHER PRESCRIPTION MEDICATIONS PRIOR TO SURGERY ?EXCEPT THE FOLLOWING Medications to discontinue per physician __ALL VITAMINS AND SUPPLEMENTS 3 DAYS PRE OP.LAST DOSE 04/21/23 Please no make-up, nail slovenian, hairspray, perfume, deodorant, or body powder the day of surgery. No jewelry (including any body piercings) or valuables the day of surgery, leave them at home. Please take a shower or bath the night before, or the morning of, surgery with an antibacterial soap. Wear comfortable, loose fitting clothing. Children are encouraged to wear pajamas. - Jewelry must be removed prior to entering the operating room. Rings and piercings that are not removed may be cut off. - The hospital will not accept responsibility for valuables. - Please leave all valuables, including medications, at home the day of surgery. If you are going home after surgery, a licensed transit mixer driver must drive you home. - NO public transportation without another adult if you receive anesthesia. - We recommend that an adult stay with you for 24 hours following discharge. - We also recommend that you do not drive, make important decision, drink alcoholic beverages, or take any drugs that were not prescribed by your health care provider for at least 24 hours after your discharge time. For Pediatric surgeries, we recommend two adults accompany the child home. Follow any additional instructions given to you from your surgeon. If you or anyone in your household have experienced Covid symptoms in the past week, please notify your surgeon or the nurse liaison at the phone number below for possible testing. Telephone instructions given to _PATIENT and asked if any additional questions and then verbalized understanding. Patient advised to call surgeon office or pre surgery nurse liaison [phone] if any additional questions.
[2023-04-19 11:59] VITALS: BMI 23.1
[2023-04-25 06:09] VITALS: BP 158/72; PULSE 64; RESP 18; TEMP 36.3; O2SAT 100
[2023-04-25] MEDS: LACTATED RINGERS 1,000 ML 30 ML IV CONT (06:26)
--- NOTE | 2023-04-25 06:47 | PM.HPGS ---
History of Present Illness History of Present Illness Chief complaint: chronic gout right hand Narrative: 68yo male with gouty tophus affecting hand here for surgery. Patient seen and examined in pre-operative holding area. No interval change in medical history or symptoms. Continues to desire to proceed with right thumb and index finger mass excision, possible osteophyte excision or joint debridement . Reviewed procedure, post-op expectations and risks including but not limited to bleeding, infection, injury to tendon/nerve/vessel, decreased hand function, stiffness, RSD, recurrence, no change or worsening of symptoms. Patient stated understanding and signed the consent form wishing to proceed. I discussed use of assistants who may participate in the case and patient stated understanding Review of Systems Review of Systems: unchanged Musculoskeletal: Comments: hand exam unchanged from previous [facility] Past Medical History Medical History Alcohol abuse Basal cell carcinoma of skin of upper extremity Cardiac arrest (02/2019) Secondary to torsades de pointes according to his . Coronary artery disease Gastroesophageal reflux disease Gout Gouty tophus of digit Hyperlipidemia Hypertension Osteoporosis Right leg DVT (03/2017) Torsades de pointes Surgical History Surgical History History of basal cell carcinoma excision Right hand. History of cardiac catheterization History of elbow surgery Left. History of five vessel coronary artery bypass Family History Family History Father Hyperlipidemia S/P CABG (coronary artery bypass graft) Diabetes mellitus Other Depression Social History Social History Social History: Surrogate medical decision maker: Celina Vieira, spouse. Code status: Full code. Smoking status: Never smoker Alcohol intake: current Drinks per week: 21 Alcohol use details: BEER Substance use: never Lack of Transportation: No Lack of Food: Never True Current Housing: I Have Housing Concerned About Future Housing: No Difficulty Paying Gas/Electric Bills: No Difficulty Paying for Meds: No Currently Unemployed: No Education: Bachelor's Degree Difficulty w/ Childcare or Family Care: No Living arrangements: with family Additional living arrangements comments: Lives with his in [place]. Has 1 son. 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 Spiritual care concerns: No Meds Home Medications and Allergies Home Medications Medication Instructions Recorded Confirmed Type atorvastatin 80 mg tablet 80 mg PO DAILY 06/19/19 04/25/23 History folic acid 1 mg tablet 1 mg PO DAILY 06/19/19 04/25/23 History lisinopril 10 mg tablet 30 mg PO DAILY 06/19/19 04/25/23 History ffobwbhf-yri-jxahw acid 400 1 tablet PO DAILY 06/19/19 04/25/23 History mcg-coQ10 250 mcg-lycop 375 mcg-lut tablet (Theragran-M Premier 50 Plus) thiamine HCl (vitamin B1) 100 mg 100 mg PO DAILY 06/19/19 04/25/23 History tablet ezetimibe 10 mg tablet 10 mg PO DAILY 09/27/22 04/25/23 History metoprolol succinate 100 mg 100 mg PO DAILY 09/27/22 04/25/23 History tablet,extended release 24 hr calcium carbonate 250 mg-vitamin 1 tablet PO DAILY@0800 30 days #30 09/28/22 04/25/23 Rx D3 3.125 mcg (125 unit) tablet tabs (Oyster Shell Calcium-Vitamin D3) apixaban 5 mg tablet (Eliquis) See Rx Instructions .Route 12/07/22 04/25/23 Rx .COMPLEX 1 month #60 tabs famotidine 20 mg tablet (Pepcid) 20 mg PO DAILY 1 month #30 tabs 12/07/22 04/25/23 Rx ferrous sulfate 325 mg (65 mg 325 mg PO DAILY 1 month #30 tabs 12/07/22 04/25/23 Rx iron) tablet magnesium oxide 400 mg
--- NOTE | 2023-04-25 06:48 | W.PM.PROC2 ---
Procedure Note - Detailed Date of Procedure 04/25/23 Pre-op Diagnosis right thumb and index finger masses Post-op Diagnosis Same Procedure Performed excision right thumb and index finger masses, right index finger extensor tendon repair and right thumb radial collateral ligament repair Surgeon Cristino Mitchell MD Critical Care Unit Manager Heidi Wiggins PA-C Anesthesia MAC Description of Procedure Patient seen and examined in pre-op holding area. consent signed and right thumb and index finger masses marked. He was taken back to the operating room on the stretcher in the supine position. TIme out was performed with anesthesia, surgeon and staff agreeing on patient's name, site and surgery to be performed. SCDs were placed on the LE and inflated. A tourniquet was placed ont he right upper extremity. Antibiotics were given IV. After anesthesia administered sedation I injected 8cc 1%lido and 0.5%marcaine plain for digital blocks among the right thumb and index finger in the palm. I exanguinated the right upper extremity with an Esmarch bandage and tourniquet was inflated to 250mmHg. I proceeded with making a longitudinal incision over the right index finger mass through skin and dermis with a 15 blade scalpel. 15 blade was used to elevate skin flaps and dissect around the tophytic mass/capsule down to the dipjoint. A curette was used for part of the debridement. After mass was excised I irrigated the joint capsule. The mass had eroded part of the extensor tendon. A rongeur was used to resect prominent osteophyte. The extensor tendon defect was repaire/reinforceed with 5-0 viryl suture. The capsule defect was repaired with 5-0 vicryl and skin was closed with 4-0 chromic. I now took my attention to the right thumb where a similar procedure was performed but two longitudinal incisions were made, ulnar and radial dorsal sides of thumb over masses. I proceeded with debridement and excision of the tophytic masses off the joint capsule after elevating skin flaps. Osteophytes were resected with rongeur off the distal phalanx. The radial collateral ligament of the ipj was extremely loose if not torn from the gout tophytic invasion leaving the ipjoint unstable. I inspected the joint and irrigated the joint and woundbed with normal saline. I repaired the radial collateral ligament with 5-0 vicryl which improved the lateral instability. I closed capsule with 5-0 vicryl and skin with 4-0 chromic. A dressing of xeroform, 4x4, and tube gauze was applied after the tourniquet was let down noting the fingers were warm and well perfused. The patient was awaken from anesthesia and transferred to the recovery room in stable condition. Compications: none EBL: 0cc Disposition: Patient tolerated procedure well and discharged home in stable conditions. Heidi Wiggins PA-C was essential for positionig, retraction, closure and dressing placement. [facility] [place] Surgery - Charge Forward: Surgery Billing ([id number], [id number] and [id number] and [id number] and [id number]. same codes for heidi wiggins but add modifier -)
--- NOTE | 2023-04-25 06:50 | WPDANESEPPF ---
Anes - Initial Pre Proc Eval Procedure: Operation Date: 04/25/23 07:30 Proposed Procedures p Excision Right Index Finger Mass and Right Thumb Mass - Cristino Mitchell MD Date/Time: 04/25/23 06:50 Surgeon: Cristino Mitchell MD Pre Op Diagnosis: chronic gout right hand Patient Data Age: 68 Gender: M Height: 1.73 m Weight: 68.4 kg Last Vital Signs Temp 36.3 C L 04/25/23 06:09 Pulse 64 04/25/23 06:09 Resp 18 04/25/23 06:09 BP 158/72 H 04/25/23 06:09 Pulse Ox 100 04/25/23 06:09 O2 Del Method Room Air 04/25/23 06:09 Allergies Allergy/AdvReac Type Severity Reaction Status Date / Time amoxicillin Allergy Unknown Rash Verified 04/25/23 06:43 ampicillin Allergy Unknown Rash Verified 04/25/23 06:43 Penicillins Allergy Unknown Rash Verified 04/25/23 06:43 Home Medications Medication Instructions Recorded Confirmed Type atorvastatin 80 mg tablet 80 mg PO DAILY 06/19/19 04/25/23 History folic acid 1 mg tablet 1 mg PO DAILY 06/19/19 04/25/23 History lisinopril 10 mg tablet 30 mg PO DAILY 06/19/19 04/25/23 History jhbsfddf-zzq-xieko acid 400 1 tablet PO DAILY 06/19/19 04/25/23 History mcg-coQ10 250 mcg-lycop 375 mcg-lut tablet (Theragran-M Premier 50 Plus) thiamine HCl (vitamin B1) 100 mg 100 mg PO DAILY 06/19/19 04/25/23 History tablet ezetimibe 10 mg tablet 10 mg PO DAILY 09/27/22 04/25/23 History metoprolol succinate 100 mg 100 mg PO DAILY 09/27/22 04/25/23 History tablet,extended release 24 hr calcium carbonate 250 mg-vitamin 1 tablet PO DAILY@0800 30 days #30 09/28/22 04/25/23 Rx D3 3.125 mcg (125 unit) tablet tabs (Oyster Shell Calcium-Vitamin D3) apixaban 5 mg tablet (Eliquis) See Rx Instructions .Route 12/07/22 04/25/23 Rx .COMPLEX 1 month #60 tabs famotidine 20 mg tablet (Pepcid) 20 mg PO DAILY 1 month #30 tabs 12/07/22 04/25/23 Rx ferrous sulfate 325 mg (65 mg 325 mg PO DAILY 1 month #30 tabs 12/07/22 04/25/23 Rx iron) tablet magnesium oxide 400 mg (241.3 mg 400 mg PO BID 1 month #60 tabs 12/07/22 04/25/23 Rx magnesium) tablet (MgO) Patient hx anesthesia problems: none Family hx anesthesia problems: none Results Review: All pre-operative results and documents have been reviewed as part of the pre-operative evaluation. [facility] Past Medical History Medical History Alcohol abuse Basal cell carcinoma of skin of upper extremity Cardiac arrest (02/2019) Secondary to torsades de pointes according to his . Coronary artery disease Gastroesophageal reflux disease Gout Gouty tophus of digit Hyperlipidemia Hypertension Osteoporosis Right leg DVT (03/2017) Torsades de pointes Surgical History Surgical History History of basal cell carcinoma excision Right hand. History of cardiac catheterization History of elbow surgery Left. History of five vessel coronary artery bypass Family History Family History Father Hyperlipidemia S/P CABG (coronary artery bypass graft) Diabetes mellitus Other Depression Social History Social History Social History: Surrogate medical decision maker: Celina Vieira, spouse. Code status: Full code. Smoking status: Never smoker Alcohol intake: current Drinks per week: 21 Alcohol use details: BEER Substance use: never Lack of Transportation: No Lack of Food: Never True Current Housing: I Have Housing Concerned About Future Housing: No Difficulty Paying Gas/Electric Bills: No Difficulty Paying for Meds: No Currently Unemployed: No Education: Bachelor's Degree Difficulty w/ Childcare or Family Care: No Living arrangements: with family Additional living arrangements comments: Lives with his in [place]. Has 1 son. Additional occu
[2023-04-25] MEDS: ceFAZolin 2 GM/D5W 50 ML 2 GM/50 ML BAG IVPB (07:30)
[2023-04-25] MEDS: LIDOCAINE HCL 1% LOCAL INJ 20 ML VIAL 8 ML INFILTRATE (07:42)
[2023-04-25 08:20] VITALS: BP 138/64; PULSE 71; RESP 12; O2SAT 100
[2023-04-25 08:50] VITALS: BP 146/63; PULSE 70; RESP 16
[2023-04-25 09:20] VITALS: BP 139/66; PULSE 68; RESP 16
== END 2023-04-25 09:30 | disposition home or self-care (01) ==
PROVIDERS: PCP Family Medicine; Visit Provider Plastic Surgery
PROC: (CPT 26110; principal; 2023-04-25 07:30)
DX: M1A.0411 Idiopathic chronic gout, right hand, with tophus (tophi) (principal); K21.9 Gastro-esophageal reflux disease without esophagitis; E78.5 Hyperlipidemia, unspecified; I10 Essential (primary) hypertension; I25.10 Atherosclerotic heart disease of native coronary artery without angina pectoris; Z79.01 Long term (current) use of anticoagulants; Z95.1 Presence of aortocoronary bypass graft; Z85.828 Personal history of other malignant neoplasm of skin; Z86.74 Personal history of sudden cardiac arrest; Z86.718 Personal history of other venous thrombosis and embolism
CPT/HCPCS: 26110 ×2; 26433; 26540; 88304; A9270; J0690; J1100; J2250; J2405; J2704; J3010; J7120